=== PATIENT | male | born 1940 | race Caucasian/White ===

== ENCOUNTER → 2022-04-14 08:16 | Outpatient (BNVA) | payer MEDICARE, SELFPAY | PROVIDERS: PCP Internal Medicine; Visit Provider Psychiatry & Neurology Neurology | DX: G20 Parkinson's disease (principal); R42 Dizziness and giddiness | CPT/HCPCS: 99202 ==

== ENCOUNTER → 2022-05-16 07:49 | Outpatient (BNVA) | payer MEDICARE, SELFPAY | PROVIDERS: PCP Internal Medicine; Visit Provider Nurse Practitioner Family | DX: G20 Parkinson's disease (principal); R42 Dizziness and giddiness | CPT/HCPCS: 99212 ==

== ENCOUNTER → 2022-08-13 07:50 | Outpatient (BNVA) | payer MEDICARE, SELFPAY | PROVIDERS: PCP Internal Medicine; Visit Provider Psychiatry & Neurology Neurology | DX: G20 Parkinson's disease (principal); R42 Dizziness and giddiness | CPT/HCPCS: 99212 ==

== ENCOUNTER → 2023-01-22 08:40 | Outpatient (BNVA) | payer MEDICARE, SELFPAY | PROVIDERS: PCP Internal Medicine; Visit Provider Psychiatry & Neurology Neurology | DX: G20 Parkinson's disease (principal); R42 Dizziness and giddiness | CPT/HCPCS: 99212 ==

== ENCOUNTER 2023-07-28 08:29 | Outpatient (AMB) | payer MEDICARE, SELFPAY ==
[2023-07-28 08:43] VITALS: BP 138/82; PULSE 81; O2SAT 96; BMI 27.7
--- NOTE | 2023-07-28 08:43 | MHC.OFFVIS ---
Intake Vital Signs 07/28/23 08:43 Height 5 ft 9 in Weight 187 lb 8 oz BMI 27.7 BP 138/82 Blood Pressure Location Lt brachial Position Sitting Pulse 81 Pulse Source Pulse Oximeter Pulse Oximetry (%) 96 Oxygen Delivery Method Room Air Intake Visit Reasons: 6 mnts f/u appt Intake Note: Pt presents to the office today for a 6 month follow up with his daughter. Pt states he has been feeling okay. Pt states his parkinsons is worse in the morning but throughout the day it gets a little better. Accompanied by: Daughter Allergies codine Adverse Reaction (Intermediate, Uncoded 07/28/23 08:44) Constipation HPI HPI Comments History of Present Illness Details 83 y/o male patient presents with his daughter for follow up of Parkinson's.He wake sup with tremors but after medications he feels better. Pt and his daughter reports that bilateral hands tremor and walking has improved with sinemet 25/100 mg TID. Pt states that he can have lightheadedness after taking sinemet, and gets better in 1 hour. He drinks fluids and sports drinks which helps. He can do ALDs without help, but still has hard time to write. He stutters sometimes. Denies hallucination. Denies drooling or choking. He has mild constipation. No falls reported.He uses a cane and walks slower.He exercises regularly [facility] Medical History Thrombocytopenia Hypothyroidism HTN (hypertension) GERD (gastroesophageal reflux disease) Allergic rhinitis Prostate cancer Hyperlipidemia Vertigo Surgical History Previous back surgery Status post surgical removal of malignant neoplasm of skin Family History Mother Breast cancer Social History Alcohol intake: never Patient Tobacco Use Status: Never used Tobacco Physical Exam Vital Signs: Last Vital Signs Pulse 81 07/28/23 08:43 BP 138/82 07/28/23 08:43 Pulse Ox 96 07/28/23 08:43 Oxygen Delivery Method Room Air 07/28/23 08:43 BMI result Body Mass Index 27.7 Const General: cooperative and no acute distress Nutritional Appearance: overweight Orientation/consciousness: patient oriented x3 Limitations: language barrier ([place] speaking only.) Eyes Other: Decreased eye blinking. Resp Effort & Inspection: normal respiratory effort and able to speak in complete sentences Neuro Other: Bradykinesia No posturing hands tremor, but has bilateral hands action tremor. Face and tongue tremor. Slow, decreased FFM. General: patient oriented x3 Gait exam (Neuro): Other gait observations present (Stooped, able to stand up without assistance. Steady gait with good steps. ) Psych Appearance: grossly normal Mental Status: mental status grossly normal Assessment & Plan Assessment & Plan (1) Parkinson's Disease: Code(s): G20 - Parkinson's disease (2) Vertigo: Code(s): R42 - Dizziness and giddiness Plan Continue sinemet 25/100 mg tID. Encouraged PO fluid to prevent light headedness and constipation. Monitor light headedness carefully. Continue to do daily exercise. Continue to use cane. Coding Level of Care Code Est Pt Level 4 (91554) Diagnoses Parkinson's Disease G20 Vertigo R42
== END 2023-07-28 08:58 | disposition home or self-care (01) ==
PROVIDERS: Visit Provider Psychiatry & Neurology Neurology
DX: G20 Parkinson's disease (principal); R42 Dizziness and giddiness
CPT/HCPCS: 99214

== ENCOUNTER → 2023-07-28 08:29 | Outpatient (BNVA) | payer MEDICARE, SELFPAY | PROVIDERS: Visit Provider Psychiatry & Neurology Neurology | DX: G20.A1 Parkinson's disease without dyskinesia, without mention of fluctuations (principal); R42 Dizziness and giddiness; Z79.899 Other long term (current) drug therapy | CPT/HCPCS: 99212 ==

== ENCOUNTER 2024-06-15 14:15 | Outpatient (AMB) | payer MEDICARE, SELFPAY ==
--- NOTE | 2024-06-15 14:39 | MHC.OFFVIS ---
Vital Signs 06/15/24 14:40 Height 5 ft 9 in Weight 163 lb 2 oz BMI 24.1 BP 126/78 Blood Pressure Location Rt brachial Position Sitting Respiration 17 Pulse 79 Pulse Source Pulse Oximeter Pulse Oximetry (%) 96 Oxygen Delivery Method Room Air Intake Visit Reasons: 6 mnts f/u with Cassidy anders MD - tremor/parkinson Intake Note: Pt presents to to the office for 10 month follow up for Parkinson's. Retail Delivery Driver Required: No Allergies codine Adverse Reaction (Intermediate, Uncoded 06/15/24 14:40) Constipation HPI Comments Details: 83 y/o male patient presents with his daughter for follow up of Parkinson's. In April he stopped carbidopa/levodopa for 5 days when he was antibiotics for dental procedure . He restarted after 5 days . Pt and his daughter reports that bilateral hands tremor and walking has improved with sinemet 25/100 mg TID. Pt states that he can have lightheadedness after taking sinemet, and gets better in 1 hour. He drinks fluids and sports drinks which helps. He can do ALDs without help, but still has hard time to write. He stutters sometimes. Denies hallucination. Denies drooling or choking. He has mild constipation. He uses a walker now since his fall ( when he stopped his medication).He exercises regularly [facility] Medical History (Updated 06/15/24 @ 15:23 by Roro Sin MD) Parkinson's disease without dyskinesia Thrombocytopenia Hypothyroidism HTN (hypertension) GERD (gastroesophageal reflux disease) Allergic rhinitis Prostate cancer Hyperlipidemia Vertigo Surgical History Previous back surgery Status post surgical removal of malignant neoplasm of skin Family History Mother Breast cancer Social History Alcohol intake: never Patient Tobacco Use Status: Never used Tobacco Physical Exam Vital Signs: Last Vital Signs Pulse 79 06/15/24 14:40 Resp 17 06/15/24 14:40 BP 126/78 06/15/24 14:40 Pulse Ox 96 06/15/24 14:40 Oxygen Delivery Method Room Air 06/15/24 14:40 BMI result Body Mass Index 24.1 Const General: cooperative and no acute distress Nutritional Appearance: overweight Orientation/consciousness: patient oriented x3 Limitations: language barrier (Polish speaking only.) Eyes Other: Decreased eye blinking. Resp Effort & Inspection: normal respiratory effort and able to speak in complete sentences Neuro Other: Bradykinesia No posturing hands tremor, but has bilateral hands action tremor. Face and tongue tremor. Slow, decreased FFM. General: patient oriented x3 Gait exam (Neuro): Other gait observations present (Stooped, able to stand up without assistance. Steady gait with good steps. ) Psych Appearance: grossly normal Mental Status: mental status grossly normal Assessment & Plan Assessment & Plan (1) Parkinson's disease without dyskinesia: Code(s): G20.A1 - Parkinson's disease without dyskinesia, without mention of fluctuations Category: Medical Plan Continue sinemet 25/100 tid Increase fluids and food intake Continue exercise. compliance with medications stressed. Coding Level of Care Code Est Pt Level 4 (81924) Complex EM visit Add On G2211 Diagnoses Parkinson's disease without dyskinesia G20.A1
[2024-06-15 14:40] VITALS: BP 126/78; PULSE 79; RESP 17; O2SAT 96; BMI 24.1
== END 2024-06-15 15:37 | disposition home or self-care (01) ==
PROVIDERS: Absent Provider Psychiatry & Neurology Neurology; PCP Internal Medicine; Visit Provider Psychiatry & Neurology Neurology
DX: G20.A1 Parkinson's disease without dyskinesia, without mention of fluctuations (principal)
CPT/HCPCS: 99214; G2211

== ENCOUNTER → 2024-06-15 14:15 | Outpatient (BNVA) | payer MEDICARE, SELFPAY | PROVIDERS: Absent Provider Psychiatry & Neurology Neurology; PCP Internal Medicine; Visit Provider Psychiatry & Neurology Neurology | DX: G20.A1 Parkinson's disease without dyskinesia, without mention of fluctuations (principal) | CPT/HCPCS: 99212 ==

== ENCOUNTER 2024-12-29 07:48 | Outpatient (AMB) | payer MEDICARE, SELFPAY ==
[2024-12-29 07:50] VITALS: BP 136/78; PULSE 77; O2SAT 100; BMI 25.1
--- NOTE | 2024-12-29 07:50 | MHC.OFFVIS ---
Vital Signs 12/29/24 07:50 Height 5 ft 9 in Weight 170 lb BMI 25.1 BP 136/78 Blood Pressure Location Rt brachial Pulse 77 Pulse Source Pulse Oximeter Pulse Oximetry (%) 100 Oxygen Delivery Method Room Air Intake Visit Reasons: 6 mnts f/u Intake Note: patient following up for Parkinson's disease without dyskinesia. Allergies codine Adverse Reaction (Intermediate, Uncoded 12/29/24 07:52) Constipation Medication List - Last Reconciled 12/29/24 by Roro Sin MD carbidopa-levodopa 25-100 mg (Sinemet) 1 tab PO QID 90 days fluticasone propionate 50 mcg/actuation (Allergy Relief (fluticasone)) 2 sprays intranasal DAILY levothyroxine 75 mcg PO DAILY lisinopril-hydrochlorothiazide 10-12.5 mg 1 tab PO DAILY tamsulosin 0.4 mg PO DAILY HPI Comments Details: 84 y/o male patient presents with his Grand son for follow up of Parkinson's. He denies any worsening. Pt and his grand son reports that bilateral hands tremor and walking has improved with sinemet 25/100 mg TID. Pt states that he can have lightheadedness after taking sinemet, and gets better in 1 hour. He drinks fluids and sports drinks which helps. He can do ALDs without help, but still has hard time to write. He stutters sometimes.He arzola ssome trouble with fine motor functions Denies hallucination. Denies drooling or choking. He has mild constipation. He uses a walker now since his fall ( when he stopped his medication).He exercises regularly [facility] Medical History Parkinson's disease without dyskinesia Thrombocytopenia Hypothyroidism HTN (hypertension) GERD (gastroesophageal reflux disease) Allergic rhinitis Prostate cancer Hyperlipidemia Vertigo Surgical History Previous back surgery Status post surgical removal of malignant neoplasm of skin Family History Mother Breast cancer Social History Alcohol intake: never Patient Tobacco Use Status: Never used Tobacco Physical Exam Vital Signs: Last Vital Signs Pulse 77 12/29/24 07:50 BP 136/78 12/29/24 07:50 Pulse Ox 100 12/29/24 07:50 Oxygen Delivery Method Room Air 12/29/24 07:50 BMI result Body Mass Index 25.1 Const General: cooperative and no acute distress Nutritional Appearance: overweight Orientation/consciousness: patient oriented x3 Limitations: language barrier (Indonesian speaking only.) Eyes Other: Decreased eye blinking. Resp Effort & Inspection: normal respiratory effort and able to speak in complete sentences Neuro Other: Bradykinesia No posturing hands tremor, but has bilateral hands action tremor. Face and tongue tremor. Slow, decreased FFM. General: patient oriented x3 Gait exam (Neuro): Other gait observations present (Stooped, able to stand up without assistance. Steady gait with good steps. ) Psych Appearance: grossly normal Mental Status: mental status grossly normal Assessment & Plan Assessment & Plan (1) Parkinson's disease without dyskinesia: Code(s): G20.A1 - Parkinson's disease without dyskinesia, without mention of fluctuations Category: Medical Qualifiers: Fluctuating manifestations: without fluctuating manifestations Qualified Code(s): G20.A1 - Parkinson's disease without dyskinesia, without mention of fluctuations Plan Increase sinemet 25/100 qid 5am,1-pm,4pm,9pm Increase fluids and food intake Continue exercise. compliance with medications stressed. Medications: Changed From carbidopa-levodopa 25-100 mg (Sinemet) 1 tab PO TID 90 days 270 tabs 3RF To carbidopa-levodopa 25-100 mg (Sinemet) 5am,10am,4pm,9pm 1 tab PO QID 90 days 360 tabs 3RF Coding Level of Care Code Est Pt Level 4 (01834) Complex EM visit Add On G2211 Diagnoses Parkinson's disease without dyskinesia or fluctuating manifestations G20.A1 Fluctuating manifestations: without fluctuating manifestations
--- OUTSIDE RECORDS SUMMARY | 2024-12-29 07:50 | XMS_ITS | Clinical Summary ---
Author Organization [facility] Address [address] [place] [address] Phone Care Team Providers Care Wet Roaster Name Role Phone Vijay Rendon MD Primary Care Provider [phone] Surgical History Surgery Date Site/Laterality Comments OTHER SURGICAL HISTORY 2000 PROCEDURE: ---- OTHER ----; COMMENT: h/o L4-L5 decompression OTHER SURGICAL HISTORY 2014 PROCEDURE: ---- OTHER ----; COMMENT: nasal polipectomy OTHER SURGICAL HISTORY 2012 PROCEDURE: ---- OTHER ----; COMMENT: prostate seeds COLONOSCOPY 10/21/2016 PROCEDURE: HISTORICAL COLONOSCOPY; COMMENT: normal HERNIA REPAIR 02/25/2018 Left PROCEDURE: HISTORICAL HERNIA REPAIR/ING Medical History Medical History Date Comments Hypertension, essential 01/22/2016 DX:Hyper tension, essential Hypothyroidism 01/22/2016 DX:Hypothyroidis m Asymptomatic varicose veins of bilateral lower extremities 01/22/2016 DX:Asymptomatic varicose vei ns of bilateral lower extremities Thrombocytopenia ([facility]) 01/22/2016 DX:Th rombocytopenia ([facility]) Allergic rhinitis 03/17/2016 DX:Allergic rh initis GERD (gastroesophageal reflux disease) 03/17/2016 DX:GERD (gastroesophageal reflux disease) History of prostate cancer 06/13/2016 DX:Ok story of prostate cancer; COMMENT: S/p RT, PSA low, f/u Gastroesophageal reflux dise ase without esophagitis 08/03/2018 DX:Gastroesophageal reflux d isease without esophagitis Parkinson disease ([facility]) 08/04/2022 DX:P arkinson disease ([facility]) Family History Relation Name Status Comments Brother 1 Alive Brother 2 Alive Brother 3 Alive Daughter Alive Father Mother (Age 50) breast ca Sister 1 Alive Sister 2 Alive Sister 3 Alive Son 1 Alive Son 2 Alive Social History Tobacco Use Types Packs/Day Years Used Date Smoking Tobacco: Never Smokeless Tobacco: Never Alcohol Use Standard Drinks/Week Comments Not Currently 0 (1 standard drink = 0.6 oz pur e alcohol) Sex and Gender Information Value Date Recorded Sex Assigned at Not on file Legal Sex Male 9:03 AM EST Gender Identity Not on file Sexual Orientation Not on file Obstetrics History Last Filed Vital Signs Vital Sign Reading Time Taken Comments Blood Pressure 118/68 05/10/2024 4:05 PM EDT L A rm Pulse 90 05/10/2024 4:05 PM EDT Temperature - - Respiratory Rate - - Oxygen Saturation - - Inhaled Oxygen Concentration - - Weight 83.2 kg (183 lb 6.4 oz) 02/08/2024 8:43 A M EDT Height 175.3 cm (5' 9 ) 02/08/2024 8:43 AM EDT Body Mass Index 27.08 02/08/2024 8:43 AM EDT Plan of Treatment Health Maintenance Due Date Last Done Comments Pneumococcal Vaccine: 50+ Years (1 of 1 - PCV) 1991 Zoster Vaccines (1 of 2) 1991 RSV Immunization Patients 60+ Years Old (1 - 1-dose 75+ series) 2016 Cholesterol Screening (Lipid Panel) 10/04/2022 Depression Screening 10/04/2022 Falls Risk Assessment 10/04/2022 Medicare Annual Wellness Visit 10/04/2022 Social Influencers of Health Screening 10/04/2022 COVID-19 Vaccine ( season) 2024 08/24/2021, 12/18/2020, 11/27/2020 Influenza Vaccine (#1) 2024 3, 08/04/2022, 08/09/2021, Additional history exists Hypertension/CHF/CAD Annual BMP Blood Test 03/28/2025 03/28/2024 DTaP,Tdap,and Td Vaccines (3 - Td or Tdap) 03/13/2031 03/13/2021, 12/21/2019 HIB Vaccines Aged Out No longer eligi ble based on patient's age to complete this topic HPV Vaccines Aged Out No longer eligi ble based on patient's age to complete this topic Hepatitis A Vaccines Aged Out No long er eligible based on patient's age to complete this topic Hepatitis B Vaccines Aged Out No long er eligible based on patient's age to complete this topic IPV Vaccines Aged Out No longer eligi ble based on patient's age to complete this topic MMR Vaccines Aged Out No longer eligi ble based on patient's age to complete this topic Meningococcal ACWY Vaccine Aged Out N o longer eligible based on patient's age to complete this topic Meningococcal B Vacine Aged Out No lo nger eligible based on patient's age to complete this topic RSV Immunization Patients Under 20 months Aged Out No longer eligible based on patient's age to complete this topic Varicella Vaccines Aged Out No longer eligible based on patient's age to complete this topic Insurance [employer] MEDICARE [facility] Advance Directives Documents on File Type Date Recorded Patient Certified Welder Expl anation Health Care Decision (hx) 03/16/2021 AD ROCHA DIRECTIVE Health Care Decision (hx) 03/16/2021 AD ROCHA DIRECTIVE Health Care Decision (hx) 03/16/2021 AD ROCHA DIRECTIVE Health Care Decision (hx) 03/16/2021 AD ROCHA DIRECTIVE Health Care Decision (hx) 03/16/2021 AD ROCHA DIRECTIVE Health Care Decision (hx) 03/16/2021 AD ROCHA DIRECTIVE Health Care Decision (hx) 03/16/2021 AD ROCHA DIRECTIVE Health Care Decision (hx) 03/16/2021 AD ROCHA DIRECTIVE Health Care Decision (hx) 03/16/2021 AD ROCHA DIRECTIVE Health Care Decision (hx) 03/16/2021 AD ROCHA DIRECTIVE Care Teams Wet Roaster Relationship Specialty Start Date End Date Vijay Rendon MD [address] [place] [id number] PCP - General Internal Medicine 11/14/19
--- OUTSIDE RECORDS SUMMARY | 2024-12-29 07:50 | XMS_ITS | Encounter Summary ---
Author Organization [facility] Address [id number] [place] [id number] Care Team Providers Care Machine Loader Name Role Phone Vijay Rendon MD Primary Care Provider [phone] Encounter Details Date Type Department Care Team (Late st Contact Info) Description 08/30/2024 Lab Requisition [facility] - Main Lab [address] [facility] [employer] [place] [address] Karri Matthews MD [address] [facility] [address] [place] [id number] Cutaneous abscess of back (any part, except buttock) Social History Tobacco Use Types Packs/Day Years Used Date Smoking Tobacco: Never Smokeless Tobacco: Never Alcohol Use Standard Drinks/Week Comments Not Currently 0 (1 standard drink = 0.6 oz pur e alcohol) Sex and Gender Information Value Date Recorded Sex Assigned at Not on file Legal Sex Male 9:03 AM EST Gender Identity Not on file Sexual Orientation Not on file documented as of this encounter Plan of Treatment Not on file documented as of this encounter Procedures Procedure Name Priority Date/Time Associated Diagnosis Comments CULTURE WOUND WITH GRAM STAIN Routine 08/30/2024 12:00 AM EST Cutaneous abscess of back (any part, except buttock) documented in this encounter Results * (ABNORMAL) Culture wound with gram stain (08/30/2024 12:00 AM EST) Culture, Wound Normal Skin Harika 06/2024 10:31 AM EST [facility] Culture, Wound Jennifer parapsilosis(A) LEA 09/03/2024 10:31 AM EST [facility] Comment: The organism value for this result has been updated. These results have been appended to the previously preliminary verified report. Edited result: Previously reported as Yeast on 09/02/2024 at 1317 EST. Gram Stain Result No Epithelial cells(A) 09/03/2024 10:31 AM EST [facility] Gram Stain Result Few Polymorphonuclear leukocytes(A) 09/03/2024 10:31 AM EST [facility] Gram Stain Result Rare Gram positive cocci(A) 09/03/2024 10:31 AM EST [facility] Swab Structure of left shoulder region / Unknown 08/30/2024 08/30/2024 6:25 PM EST us Karri Matthews MD LAB MICROBIOLOGY - GENERAL ORD ERABLES Final Result [facility] [address] [place] [address], documented in this encounter Visit Diagnoses Diagnosis Cutaneous abscess of back (any part, except buttock) documented in this encounter Care Teams Machine Loader Relationship Specialty Start Date End Date Vijay Rendon MD [address] [place] [id number] PCP - General Internal Medicine 11/14/19 documented as of this encounter
== END 2024-12-29 08:23 | disposition home or self-care (01) ==
PROVIDERS: PCP Internal Medicine; Visit Provider Psychiatry & Neurology Neurology
DX: G20.A1 Parkinson's disease without dyskinesia, without mention of fluctuations (principal)
CPT/HCPCS: 99214; G2211

== ENCOUNTER → 2024-12-29 07:48 | Outpatient (BNVA) | payer MEDICARE, SELFPAY | PROVIDERS: PCP Internal Medicine; Visit Provider Psychiatry & Neurology Neurology | DX: G20.A1 Parkinson's disease without dyskinesia, without mention of fluctuations (principal) | CPT/HCPCS: 99212 ==

== ENCOUNTER 2025-06-07 11:46 | Outpatient (AMB) | payer MEDICARE, SELFPAY ==
--- NOTE | 2025-06-07 11:46 | A.OFFVIS_ITS ---
Intake Visit Reasons: Daughter, Discharge follow up ([phone]) Intake Note: Patient presents Hospital follow up. [facility] records in chart. Dining Room Attendant Cafeteria Required: Yes Dining Room Attendant Cafeteria Language: Repatcher Services: Dining Room Attendant Cafeteria Offered & Declined Dining Room Attendant Cafeteria Name: Daughter Information Interpreted: non-clinical & clinical Allergies codine Adverse Reaction (Intermediate, Uncoded 12/29/24 07:52) Constipation HPI Comments Details: 84 y/o male patient presents with his daughter for follow up of Parkinson's Disorder post rehabilitation on [employer] Video Call today. Dana Penaloza daughter helps with history. The dose of CD/LD is increased to 1.5 tablets of CD/LD now TID 9am, 1pm, and again at 9pm. Patient Ed. provided re: Medication adherence, dopamine uptake interference with absorption if taken with proteins. CTscan May 01 2025, incidental finding 9mm pulmonary nodule. May 01 2025 he had a fall, he was feeling off balanced, and the ambulance was called he was taken to the ED at [facility]. He had a UTI with AMS, mood irritability and complete work up followed by 3 weeks of Rehabilitative stay. He was discontinued on his lisinopril - Hctz 10-12.5mg po daily. He has PT and OT coming into the home and has fallen 3x this week. He forgets to use his walker as his memory is poor, daughter would like VNA services also for feeding, safe toileting and transferring. He denies dizziness, vertigo, and headaches. He has bilateral hand tremors L>R, and pulling to the r. side of his upper lip tremors. He drinks fluids and sports drinks with assistance, can not feed himself or dress himself due to fine motor coordination deficits. He can not complete ADLS. Needs support. He stutters when frustrated and anxious. Denies A/V hallucinations, can sleep through the night for a few hours. Denies swallowing, drooling or choking, speech is soft, unable to project his voice. [facility] Medical History Parkinson's disease without dyskinesia Thrombocytopenia Hypothyroidism HTN (hypertension) GERD (gastroesophageal reflux disease) Allergic rhinitis Prostate cancer Hyperlipidemia Vertigo Surgical History Previous back surgery Status post surgical removal of malignant neoplasm of skin Family History Mother Breast cancer Social History Alcohol intake: never Patient Tobacco Use Status: Never used Tobacco Telehealth Telehealth Telehealth Platform: [employer] Location of provider rendering services: practice address Location of patient: address on file Patient Identification confirmed using: Name, : Yes Telehealth method: video Patient verbally consented to treatment: Yes Patient verbally consented to billing insurance company: Yes Patient informed of any privacy concerns related to visit: Yes Minutes spent on Phone/Video with Pt.: 21 Results Reviewed Results Reviewed: May 01 ED note [facility]. Assessment & Plan Assessment & Plan (1) Falls frequently: Code(s): R29.6 - Repeated falls Category: Medical (2) Coarse tremors: Code(s): G25.2 - Other specified forms of tremor Category: Medical (3) Parkinson's disease without dyskinesia: Code(s): G20.A1 - Parkinson's disease without dyskinesia, without mention of fluctuations Category: Medical Qualifiers: Fluctuating manifestations: without fluctuating manifestations Qualified Code(s): G20.A1 - Parkinson's disease without dyskinesia, without mention of fluctuations (4) Pulmonary nodule less than 1 cm in diameter with low risk for malignant neoplasm: Comment: will f/u per radiologist recommendation. Code(s): R91.1 - Solitary pulmonary nodule; Z91.89 - Other specified personal risk factors, not elsewhere classified Category: Medical Plan Continue sinemet 1.5 tablet 25/100 qid 9am, 1pm, and 9pm Increase fluids and food intake without protein products when taking the Sinemet, pt. education provided re: Apomorphine pump therapy with [facility] today. Incidental finding of pulmonary nodule 9mm on CTscan. Continue working with PT/OT and speech as needed. VNA services requested for ambulation and transferring, showering and feeding. [place] paperwork for Son Puneet Kincaid, as Dana the daughter is going back to work Thursday. Orders: Referrals [facility] Referral R29.6 - Repeated falls Patient Instructions: Sleep Hygiene provided: set a scheduled bedtime and wake time to help regulate the circadian rhythm and balance the release of pituitary hormones. Sleep in a dark room, temperatures below 68 degrees, and no devices n bed. Limit caffeinated products 6 hours prior to bed, and limit fluids 2-4 hours prior to bed. Gentle night yoga, diffusing essential oils, and playing soft music can be relaxing. Medication adherence Altered mental status Coding Level of Care Code Tele Est Pt Level 4 (23032) Diagnoses Falls frequently R29.6 Coarse tremors G25.2 Parkinson's disease without dyskinesia or fluctuating manifestations G20.A1 Fluctuating manifestations: without fluctuating manifestations Pulmonary nodule less than 1 cm in diameter with low risk for malignant neoplasm R91.1; Z91.89
--- OUTSIDE RECORDS SUMMARY | 2025-06-07 12:40 | XMS_ITS | Encounter Summary ---
Author Organization [facility] Address [address] [place] [id number] Care Team Providers Care Business Control Manager Name Role Phone Mariah Velasquez MD Primary Care Provider Reason for Visit * Reason Onset Date Comments VNA 06/06/2025 Encounter Details Date Type Department Care Team (Late st Contact Info) Description 06/06/2025 Telephone Internal Medicine - [facility] [address] [place], [place] [phone] Mariah Velasquez MD [address] [place], [place] VNA Social History Tobacco Use Types Packs/Day Years [...] on file documented as of this encounter Progress Notes * Carolyn Cabello RN - 06/07/2025 9:16 AM EDT Spoke with the Sofia from [facility] requesting OT home health aide and social security assessor. The patient is falling a lot at home refuses to go to ER. Family is frustrated and needs more help. VO given Patient has [facility] * Carolyn Cabello RN - 06/06/2025 1:05 PM EDT Attempted to contact VNA reached VM please re message to triage * Kendaljovani Ann - 06/06/2025 12:40 PM EDT VNA CALL Which [facility]NA office is calling? [facility] Full name of caller: Sofia Elo The caller is A occupational therapist Is the caller at the patients home?: no Reason for call: Needing verbal orders for OT, home health aid and social media specialist. Puneet had 2 falls yesterday and has bruising on arm in which pt refuses to go to the ER. Does caller need an urgent call back? no Was CONTACT Telephone # obtained above?: yes . documented in this encounter Plan of Treatment Upcoming Encounters Date Type Department Care Team (Late st Contact Info) Description 06/14/2025 8:30 AM EDT [facility] [address] [place] [address] Daniel Mcintyre NP [address] [place] [address] documented as of this encounter Visit Diagnoses Diagnosis Weakness generalized- Primary Other malaise and fatigue documented in this encounter Care Teams Business Control Manager Relationship Specialty Start Date End Date Mairah Velasquez MD [address] [place] [address] PCP - General Internal Medicine 05/30/25 documented as of this encounter
== END 2025-06-07 12:31 | disposition home or self-care (01) ==
LOC: HO.HSMS 11:46
PROVIDERS: PCP Internal Medicine; Visit Provider Physician Assistant Medical
DX: R29.6 Repeated falls (principal); G25.2 Other specified forms of tremor; G20.A1 Parkinson's disease without dyskinesia, without mention of fluctuations; R91.1 Solitary pulmonary nodule; Z91.89 Other specified personal risk factors, not elsewhere classified
CPT/HCPCS: 99214

== ENCOUNTER 2025-07-03 08:06 | Outpatient (AMB) | payer MEDICARE, SELFPAY ==
--- OUTSIDE RECORDS SUMMARY | 2025-06-27 23:59 | XMS_ITS | Continuity of Care Document ---
Author Organization [facility] Address [address] [place] [address]- Care Team Providers Care Advertising Columnist Name Role Phone Not on Staff, PCP Primary Care Physician Unavail able Encounter 06/26/25 - 06/27/[address] [address]- Attending Physician: Not on Staff, Attending MD Referring Physician: Not on Staff, Referring MD Encounter Type: SMRI Allergies, Adverse Reactions, Alerts No Known Allergies Immunizations Given and Recorded Vaccine Date Status Refusal Reason influenza virus vaccine, inactivated 08/03/23 Neno rded influenza virus vaccine, inactivated 08/04/22 Neno rded influenza virus vaccine, inactivated 08/09/21 Neno rded influenza virus vaccine, inactivated 08/01/20 Neno rded influenza virus vaccine, inactivated 08/23/18 Neno rded influenza virus vaccine, inactivated 08/25/17 Neno rded influenza virus vaccine, inactivated 11/11/16 Neno rded influenza virus vaccine, inactivated 08/01/16 Neno rded [id number] bivalent booster vax 11/05/22 Recorded SARS-CoV-2 mRNA ([id number]-[id number]) vax 03/01/22 Recorded SARS-CoV-2 (COVID-19) mRNA BNT-162b2 vac 08/24/21 Recorded SARS-CoV-2 (COVID-19) mRNA BNT-162b2 vac 12/18/20 Recorded SARS-CoV-2 (COVID-19) mRNA BNT-162b2 vac 11/27/20 Recorded tetanus/diphtheria/pertussis, acel(Tdap) 03/13/21 Recorded tetanus-diphtheria toxoids (Td) 12/21/19 Recorded Medications acetaminophen 325 mg oral tablet 650 mg, By Mouth, Every 4 hours, PRN, Temperature Greater than 100.5, Refills 0, Maintenance, Pain , Mild, 04/24/25 9:09:00 AM EDT, Partial fill upon patient request if the prescription is for a schedule II opioid drug. Start Date: 04/24/25 Status: Ordered Medication Dispense Status: Completed Total Allowed Fills: 1 Fills Dispensed: 0 carbidopa-levodopa 25 mg-100 mg oral tablet 1.5 tablet, By Mouth, 3 times a day, 0 Refills, Maintenance, 04/27/25 10:35:00 AM EDT, Tablet, Partial fill upon patient request if the prescription is for a schedule II opioid drug. Start Date: 04/27/25 Status: Ordered Medication Dispense Status: Completed Total Allowed Fills: 1 Fills Dispensed: 0 levothyroxine 75 mcg (0.075 mg) oral tablet 1 tablet = 75 mcg, By Mouth, Daily, Maintenance, 04/19/25 8:58:00 AM EDT, Tablet, Partial fill upon patient request if the prescription is for a schedule II opioid drug. Start Date: 04/19/25 Status: Ordered Medication Dispense Status: Completed Total Allowed Fills: 1 Fills Dispensed: 0 lisinopril 10 mg oral tablet 10 mg, 1, tablet, By Mouth, Daily, # 30 tablet, Refills 0, Tot. Refills 0, Maintenance, 05/01/25 2:16:00 PM EDT, Do Not Route, Partial fill upon patient request if the prescription is for a schedule IIopioid drug. Start Date: 05/01/25 Status: Ordered Medication Dispense Status: Completed Quantity: 30.0 Unit: tablet Total Allowed Fills: 1 Fills Dispensed: 0 MiraLax Powder 1 pack/packet = 17 Gm, By Mouth, Daily, PRN Constipation, 0 Refills, Maintenance, 04/24/25 9:09:00 AM EDT, Powder, Partial fill upon patient request if the prescription is for a schedule II opioid drug. Start Date: 04/24/25 Status: Ordered Medication Dispense Status: Completed Total Allowed Fills: 1 Fills Dispensed: 0 senna 187 mg oral tablet 1 tablet = 8.6 mg, By Mouth, 2 times a day, PRN Constipation, 0 Refills, Maintenance, 04/27/25 10:35:00 AM EDT, Tablet, Partial fill upon patient request if the prescription is for a schedule II opioiddrug. Start Date: 04/27/25 Status: Ordered Medication Dispense Status: Completed Total Allowed Fills: 1 Fills Dispensed: 0 Social History Social History Type Response Smoking Status Never (less than 100 in lifetime) entered on: 06/14/25 Sex Sex Representation Male (finding) Patient Care team information Care Team Personnel Name: Juan Mike RN Position: S RN Member Role: Primary Care Nurse Name: Darien Lopes RN Position: S RN Member Role: Primary Care Nurse Name: Isela Fitzpatrick RN Position: S RN Member Role: Primary Care Nurse Name: Not on Staff, PCP Position: [facility] Physician (General Medicine) Member Role: PCP Name: Kim Soriano LPN Position: [facility] RN Member Role: Primary Care Nurse Name: Marcia Hyatt RN Position: [facility] RN Member Role: Primary Care Nurse Care Team Related Persons Name: CANDICE RANGEL Name: BRITTANIE RANGEL Insurance Providers Guarantor name: CANDICE RANGEL Health Plan Information #: 1 Payer: BRYCE IZAGUIRRE Payer Identifier: CHRIS Member Number: [id number] Group Number: [id number] Subscriber Identifier: NA Relationship to Subscriber: self Coverage Type: NA Coverage Verification Date: NA Telecom: CHRIS Address:
--- OUTSIDE RECORDS SUMMARY | 2025-06-29 23:59 | XMS_ITS | Continuity of Care Document ---
Author Organization [facility] Address [address] [address]- Care Team Providers Care Pharmacy Salesperson Name Role Phone Not on Staff, PCP Primary Care Physician Unavail able Encounter [facility] Date(s): 04/26/25 - 06/29/25 [facility] [address] [address] Attending Physician: Brian Esquivel MD Admitting Physician: Brian Esquivel MD Referring Physician: Brian Esquivel MD Encounter Type: Pre-OutPatient One Time Allergies, Adverse Reactions, Alerts No Known Allergies [...] influenza virus vaccine, inactivated 08/01/16 Neno rded [id number] bivalent booster vax 11/05/22 Recorded SARS-CoV-2 mRNA (zxtfizt-wohn-fbfra) vax 03/01/22 Recorded SARS-CoV-2 (COVID-19) mRNA BNT-162b2 [...] Team Personnel Name: Juan Mike RN Position: [facility] RN Member Role: Primary Care Nurse Name: Darien Lopes RN Position: [facility] RN Member Role: Primary Care Nurse Name: Isela Fitzpatrick RN Position: [facility] RN Member Role: Primary Care Nurse Name: Not on Staff, PCP Position: [facility] Physician (General Medicine) Member Role: PCP Name: Kim Soriano LPN Position: [facility] RN Member Role: Primary Care Nurse Name: Marcia Hyatt RN Position: [facility] RN Member Role: Primary Care Nurse Care Team Related Persons Name: CANDICE RANGEL Name: BRITTANIE RANGEL Insurance Providers Guarantor name: CANDICE RANGEL Health Plan Information #: 1 Payer: BRYCE IZAGUIRRE Payer Identifier: NA Member Number: [id number] Group Number: [id number] Subscriber Identifier: [id number] Relationship to Subscriber: self Coverage Type: NA Coverage Verification Date: NA Telecom: Address:
--- NOTE | 2025-07-03 08:13 | A.OFFVIS_ITS ---
Vital Signs 07/03/25 08:14 Height 5 ft 9 in Weight 170 lb BMI 25.1 BP 132/84 Blood Pressure Location Lt brachial Position Sitting Pulse 78 Pulse Source Pulse Oximeter Pulse Oximetry (%) 97 Oxygen Delivery Method Room Air Intake Visit Reasons: 6 mnts f/u Intake Note: Patient presents follow up Parkinson's. Patient was seen at [facility](April) due to falling and was found on floor by daughter(Stroke? metal state going, slurred speach). Had UTI. Son states little better but still worried of falling/slipping. Alone for 8-3 Mandrel Maker Required: Yes Mandrel Maker Language: Chemist Pharmaceutical Services: Mandrel Maker Offered & Declined Mandrel Maker Name: son Information Interpreted: non-clinical & clinical Accompanied by: Son Allergies codeine Allergy (Intermediate, Verified 07/03/25 08:22) Constipation HPI Comments Details: 85 y/o male patient presents for a follow up of Parkinson's Disorder. The dose of CD/LD is increased to 1.5 tablets of CD/LD now TID 9am, 1pm, and again at 9pm. Patient Ed. provided re: medication adherence, dopamine uptake interference with absorption if taken with proteins. 2024, he had slurred speech and fell, he was taken to ED by ambulance for for stroke like symptoms, he had a UTI with AMS mood irriitability and he was worked up for a stroke. He went to rehab for one month to [place] he had a UTI. Daughter is concerned as she is going back to work from 8am to 3pm, and he is left all alone. He has a fall alert bracelet in Persian in case of emergencies. His last fall was 3 weeks or more, he is walking with the walker. Sleep is stable has a medical bed to help get in and out of bed, and can turn over. He has PT and OT coming into the home since the fall, 3x per week. Gait is unstable and leans to the right when walking with his rolling walker. Hearing is poor, daughter would like VNA / SOCIAL WELFARE CLERK services to assist for feeding, dressing, safe toileting and transferring. Mood is depressed. Cognition stable. He denies headaches, dizziness, vertigo. Tremors cecilia hand tremors L>R, with pulling to the r. side of his upper lip and tremors of the tongue. ADLS can not feed himself, food must be cut up for him, needs support with dressing showering and all due to fine motor activities. Diet is stable, BM 2-3x a week, drinks plenty of water. Denies A/V hallucinations, can sleep through the night for a few hours. Nocturia has urinal at bedside. Social activities, none. Denies dysphagia, drooling is worse, speech is soft, unable to project his voice. He stutters when frustrated and anxious. [facility] Medical History Parkinson's disease without dyskinesia Thrombocytopenia Hypothyroidism HTN (hypertension) GERD (gastroesophageal reflux disease) Allergic rhinitis Prostate cancer Hyperlipidemia Vertigo Surgical History Previous back surgery Status post surgical removal of malignant neoplasm of skin Family History Mother Breast cancer Social History Alcohol intake: never Patient Tobacco Use Status: Never used Tobacco Physical Exam Vital Signs: Last Vital Signs Pulse 78 07/03/25 08:14 BP 132/84 07/03/25 08:14 Pulse Ox 97 07/03/25 08:14 Oxygen Delivery Method Room Air 07/03/25 08:14 BMI result Body Mass Index 25.1 Const General: cooperative, no acute distress and tired appearing Nutritional Appearance: average body habitus Orientation/consciousness: patient oriented x3 Limitations: language barrier (Persian speaking only.) Eyes Other: Decreased eye blink. Resp Effort & Inspection: normal respiratory effort and able to speak in complete sentences Neuro Other: Decreased blink and Bradykinesia. Hypophonia, decreased hearing bilaterally. No posturing hands tremor, but has bilateral hands action tremor L>R. Face and tongue tremor. Slow, decreased FFM. L. extremity rigidity Stooped posture ambulates with rolling walker and leans to the right. General: patient oriented x3 Cranial nerves: Yes Ability to bilaterally rotate head present (with limited rom on lateral rotation.) and Yes Ability to bilaterally elevate shoulders present Gait exam (Neuro): Staggering gait present, Assistive device used and Other gait observations present (Stooped, able to stand up without assistance.) Motor exam (neuro): Abnormal motor strength present and Abnormal muscle tone present Deep tendon reflexes (DTR's): Right triceps reflex intensity grade: 1+, Left triceps reflex intensity grade: 1+, Rt Biceps (C5, C6): 1+, Left biceps reflex intensity grade: 1+, Right brachioradialis reflex intensity grade: 1+, Left brachioradialis reflex intensity grade: 1+, Right patellar reflex intensity grade: 1+ and Left patellar reflex intensity grade: 1+ Coordination: [id number] test normal, rapid alternating movements of the distal upper extremity normal (slow) and rapid alternating movements of the distal lower extremity normal (slow l>r) Psych Appearance: grossly normal Speech and movement: Slowed movement present (Neuro) Results Reviewed Results Reviewed: 2024 [facility] note CTscan /PET 9mm infectious / inflammatory r.u.l nodule. No lymphadenopathy. More likely infectious etiology vs. malignancy. Assessment & Plan Assessment & Plan (1) Falls frequently: Comment: using rolling walker now Code(s): R29.6 - Repeated falls Category: Medical (2) Coarse tremors: Code(s): G25.2 - Other specified forms of tremor Category: Medical (3) Parkinson's disease without dyskinesia: Code(s): G20.A1 - Parkinson's disease without dyskinesia, without mention of fluctuations Category: Medical Qualifiers: Fluctuating manifestations: without fluctuating manifestations Qualified Code(s): G20.A1 - Parkinson's disease without dyskinesia, without mention of fluctuations (4) Pulmonary nodule less than 1 cm in diameter with low risk for malignant neop lasm: Comment: infectous etiology Code(s): R91.1 - Solitary pulmonary nodule; Z91.89 - Other specified personal risk factors, not elsewhere classified Category: Medical (5) Drooling: Comment: speech Code(s): K11.7 - Disturbances of salivary secretion Category: Medical Plan Continue sinemet 1.5 tablet 25/100 tid 9am, 1pm, and 9pm, Increase fluids and food intake without protein products when taking the Sinemet, pt. education provided Monitor off time and take notes. for Onpago / Apomorphine re: Apomorphine pump therapy with Onpago today as he may be a good candidate. Continue working with PT/OT weekly. VNA/SOCIAL WELFARE CLERK services requested for support with transferring, showering and feeding. f/u in 3 months or sooner if needed. Orders: Referrals Speech and Hearing Referral K11.7 - Disturbances of salivary secretion, R13.10 - Dysphagia, unspecified Patient Instructions: Sleep Hygiene provided: set a scheduled bedtime and wake time to help regulate the circadian rhythm and balance the release of pituitary hormones. Sleep in a dark room, temperatures below 68 degrees, and no devices n bed. Limit caffeinated products 6 hours prior to bed, and limit fluids 2-4 hours prior to bed. Gentle night yoga, diffusing essential oils, and playing soft music can be relaxing. Coding Level of Care Code Est Pt Level 4 (21298) Diagnoses Falls frequently R29.6 Coarse tremors G25.2 Parkinson's disease without dyskinesia or fluctuating manifestations G20.A1 Fluctuating manifestations: without fluctuating manifestations Pulmonary nodule less than 1 cm in diameter with low risk for malignant neoplasm R91.1; Z91.89 Drooling K11.7
[2025-07-03 08:14] VITALS: BP 132/84; PULSE 78; O2SAT 97; BMI 25.1
--- OUTSIDE RECORDS SUMMARY | 2025-07-03 08:49 | XMS_ITS | Encounter Summary ---
Author Organization [facility] Address [address] [place] [phone] Care Team Providers Care Laryngologist Name Role Phone Mariah Velasquez MD Primary Care Provider [phone] Reason for Visit * Reason Onset Date Comments VNA 06/01/2025 Encounter Details Date Type Department Care Team (Late st Contact Info) Description 06/01/2025 Telephone Internal Medicine - [facility] [address] [place], [place] [phone] Mariah Velasquez MD [address] [place], [place] Social History Tobacco Use Types Packs/Day Years [...] Progress Notes * Carolyn Cabello RN - 06/01/2025 4:04 PM EDT Spoke with Ely LAYTON requesting VO PT for the start of care with assessment for correction. Jose ROSS * Maral Penn - 06/01/2025 3:57 PM EDT [facility]NA CALL Which [facility] office is calling? [facility] Full name of caller: Ely The caller is A nurse Is the caller at the patients home?: no Reason for call: Needing verbal orders for PT to start tomorrow Does caller need an urgent call back? yes Was CONTACT Telephone # obtained above?: yes documented in this encounter Plan of Treatment Upcoming Encounters Date Type Department Care Team (Late st Contact Info) Description 07/21/2025 2:30 PM EDT Office Visit Internal Medicine - [address] [phone] Daniel Mcintyre NP [address] [place], [place] documented as of this encounter Visit Diagnoses Not on filedocumented in this encounter Care Teams Laryngologist Relationship Specialty Start Date End Date Mariah Velasquez MD [address] [place] [address] PCP - General Internal Medicine 05/30/25 documented as of this encounter
--- OUTSIDE RECORDS SUMMARY | 2025-07-03 08:49 | XMS_ITS | Encounter Summary ---
Author Organization [facility] Address [address] [place] [phone] Care Team Providers Care Traveling Storekeeper Name Role Phone Mariah Velasquez MD Primary Care Provider [phone] Encounter Details Date Type Department Care Team (Late Contact Info) Description 05/14/[address] [facility] - Main Lab [address] [facility] [place] [address] Rosemary Carranza MD [address] [place], [place] [id number] Essential (primary) hypertension Social History Tobacco Use Types Packs/Day Years [...] as of this encounter Plan of Treatment Upcoming Encounters Date Type Department Care Team (Late st Contact Info) Description 07/21/2025 2:30 PM EDT Office Visit Internal Medicine - [address] [phone] Daniel Mcintyre NP [address] [place] [address] documented as of this encounter Procedures Procedure Name Priority Date/Time Associated Diagnosis Comments COMPLETE BLOOD COUNT Routine 05/15/2025 5:56 AM EDT Essential (primary) hypertension BASIC METABOLIC PANEL Routine 05/15/2025 5:56 AM EDT Essential (primary) hypertension documented in this encounter Results * Basic metabolic panel (05/15/2025 5:56 AM EDT) Sodium 141 133 - 145 mmol/L LAB CHEMISTRY METHOD 05/15/2025 12:01 PM [facility] Potassium 3.8 3.5 - 5.5 mmol/L LAB CHEMISTRY METHOD 05/15/2025 12:01 PM [facility] Chloride 106 96 - 110 mmol/L LAB CHEMISTRY METHOD 05/15/2025 12:01 PM [facility] CO2 30 21 - 32 mmol/L LAB CHEMISTRY METHOD 05/15/2025 12:01 PM [facility] Anion Gap 5 3 - 11 LAB CHEMISTRY METHOD 05/15/2025 12:01 PM [facility] Glucose 79 70 - 100 mg/dL LAB CHEMISTRY METHOD 05/15/2025 12:01 PM [facility] BUN 11 5 - 25 mg/dL LAB CHEMISTRY METHOD 05/15/2025 12:01 PM [facility] Creatinine 0.88 0.70 - 1.30 mg/dL LAB CHEMISTRY METHOD 05/15/2025 12:01 PM [facility] eGFR 85 >=60 mL/min/1. 73m2 LAB CHEMISTRY METHOD 05/15/2025 12:01 PM [facility] Comment:Calculation based on the Chronic Kidney Disease Epidemiology Collaboration (CKD-EPI) equation refit without adjustment for race. BUN/Creatinine Ratio 12.5 LAB CHEMISTRY METHOD 05/15/2025 12:01 PM [facility] Calcium 8.8 8.5 - 10.5 mg/dL LAB CHEMISTRY METHOD 05/15/2025 12:01 PM [facility] Blood Venous blood specimen / Unknown Venipuncture / Unknown 05/15/2025 5:56 AM EDT 05/15/2025 9:53 AM EDT us Rosemary Carranza MD LAB BLOOD ORDERABLES Final Resul t [facility] [address] [place] [address], * (ABNORMAL) Complete blood count (05/15/2025 5:56 AM EDT) [facility] WBC 5.4 4.8 - 10.8 K/mcL LAB HEMETOLOGY METHOD 05/15/2025 10:42 AM EDT [facility] RBC 4.70 4.50 - 5.50 M/mcL LAB HEMETOLOGY METHOD 05/15/2025 10:42 AM EDT [facility] Hemoglobin 13.6 13.5 - 17.5 g/dL LAB HEMETOLOGY METHOD 05/15/2025 10:42 AM EDT [facility] Hematocrit 41.7(L) 42.0 - 54.0 % LAB HEMETOLOGY METHOD 05/15/2025 10:42 AM EDT [facility] MCV 89.3 79.0 - 98.0 FL LAB HEMETOLOGY METHOD 05/15/2025 10:42 AM EDT [facility] MCH 29.1 27.0 - 32.0 pcg LAB HEMETOLOGY METHOD 05/15/2025 10:42 AM EDT [facility] MCHC 32.6 32.0 - 37.0 g/dL LAB HEMETOLOGY METHOD 05/15/2025 10:42 AM EDT [facility] RDW 13.6 11.0 - 15.0 % LAB HEMETOLOGY METHOD 05/15/2025 10:42 AM EDT [facility] Platelets 148 130 - 400 K/mcL LAB HEMETOLOGY METHOD 05/15/2025 10:42 AM EDT [facility] MPV 9.9 7.0 - 11.0 FL LAB HEMETOLOGY METHOD 05/15/2025 10:42 AM EDT [facility] NRBC 0.0 <1.0 % LAB HEMETOLOGY METHOD 05/15/2025 10:42 AM EDT [facility] NRBC Absolute 0.00 <0.10 K/mcL LAB HEMETOLOGY METHOD 05/15/2025 10:42 AM EDT [facility] Blood Venous blood specimen / Unknown Venipuncture / Unknown 05/15/2025 5:56 AM EDT 05/15/2025 9:53 AM EDT us Rosemary Carranza MD LAB BLOOD ORDERABLES Final Resul t [facility] [address] [place] [address], documented in this encounter Visit Diagnoses Diagnosis Essential (primary) hypertension Unspecified essential hypertension documented in this encounter Care Teams Traveling Storekeeper Relationship Specialty Start Date End Date Mariah Velasquez MD [address] [place], [place] PCP - General Internal Medicine 05/30/25 documented as of this encounter
--- OUTSIDE RECORDS SUMMARY | 2025-07-03 08:49 | XMS_ITS | Encounter Summary ---
Author Organization [facility] Address [id number] [place] [phone] Care Team Providers Care High [employer] Science Tutor Name Role Phone Mariah Velasquez MD Primary Care Provider [phone] Reason for Visit * Reason Onset Date Comments Faxed Order 06/28/2025 Domonique ([id number] ) Encounter Details Date Type Department Care Team (Late st Contact Info) Description 06/28/2025 Telephone Internal Medicine - [address] [address] [place] [phone] Mariah Velasquez MD [address] [place], [place] [address] Social History Tobacco Use Types Packs/Day [...] as of this encounter Progress Notes * Amber Manzo - 06/28/2025 10:59 AM EDT Faxed order received from Domonique. Orders placed in Mariah Velasquez MD bin for signing, please faxto [phone] documented in this encounter Plan of Treatment Upcoming Encounters Date Type Department Care Team (Late st Contact Info) Description 07/21/2025 2:30 PM EDT Office Visit Internal Medicine - [facility] [address] [place], [place] [phone] Daniel Mcintyre NP [address] [place], [place] documented as of this encounter Visit Diagnoses Not on filedocumented in this encounter Care Teams High [employer] Science Tutor Relationship Specialty Start Date End Date Mariah Velasquez MD [address] [place], [place] PCP - General Internal Medicine 05/30/25 documented as of this encounter
--- OUTSIDE RECORDS SUMMARY | 2025-07-03 08:49 | XMS_ITS | Encounter Summary ---
Author Organization [facility] Address [id number] [place] [phone] Care Team Providers Care Medical Billing Instructor Name Role Phone Mariah Velasquez MD Primary Care Provider [phone] Reason for Visit * Reason Onset Date Comments Faxed Order 06/12/2025 Domonique LAYTON ([id number]) Encounter Details Date Type Department Care Team (Late st Contact Info) Description 06/12/2025 Telephone Internal Medicine - [facility] [address] [place], [place] [phone] Mariah Velasquez MD [facility] [place] Social History Tobacco Use Types Packs/Day [...] encounter Progress Notes * Amber Manzo - 06/12/2025 12:02 PM EDT Faxed order received from Domonique. Orders placed in Dr. Menezes's bin for signing, please fax to [phone]. documented in this encounter Plan of Treatment Upcoming Encounters Date Type Department Care Team (Late st Contact Info) Description 07/21/2025 2:30 PM EDT Office Visit Internal Medicine - [facility] [address] [place], [place] [phone] Daniel Mcintyre NP [address] [place], [place] documented as of this encounter Visit Diagnoses Not on filedocumented in this encounter Care Teams Medical Billing Instructor Relationship Specialty Start Date End Date Mariah Velasquez MD [address] [place] [address] PCP - General Internal Medicine 05/30/25 documented as of this encounter
--- OUTSIDE RECORDS SUMMARY | 2025-07-03 08:49 | XMS_ITS | Encounter Summary ---
Author Organization [facility] Address [address] [place] [phone] Care Team Providers Care Administrative Officer Name Role Phone Mariah Velasquez MD Primary Care Provider [phone] Encounter Details Date Type Department Care Team (Late Contact Info) Description 08/30/2024 Lab Requisition [facility] - Main Lab [address] [facility] [place] [phone] Karri Matthews MD [address] [facility] [address] [place] [phone] Cutaneous abscess of back (any part, except [...] PM EDT Office Visit Internal Medicine - [address] [phone] Daniel Mcintyre NP [address] [place], [place] [phone] documented as of this encounter Procedures Procedure Name Priority Date/Time Associated Diagnosis Comments CULTURE WOUND WITH GRAM STAIN Routine 08/30/2024 12:00 AM EST Cutaneous abscess of back (any part, except buttock) documented in this encounter Results * (ABNORMAL) Culture wound with gram stain (08/30/2024 12:00 AM EST) Culture, Wound Normal Skin Harika 06/2024 10:31 AM [facility] Culture, Wound Jennifer parapsilosis(A) LEA 09/03/2024 10:31 AM EST [facility] Comment: The organism value for this result has been updated. These results have been appended to the previously preliminary verified report. Edited result: Previously reported as Yeast on 09/02/2024 at 1317 EST. Gram Stain Result No Epithelial cells(A) 09/03/2024 10:31 AM [facility] Gram Stain Result Few Polymorphonuclear leukocytes(A) 09/03/2024 10:31 AM [facility] Gram Stain Result Rare Gram positive cocci(A) 09/03/2024 10:31 AM [facility] Swab Structure of left shoulder region / Unknown 08/30/2024 08/30/2024 6:25 PM EST Karri Matthews MD LAB MICROBIOLOGY - GENERAL ORD ERABLES Final Result [facility] [address] [place] [address], documented in this encounter Visit Diagnoses Diagnosis Cutaneous abscess of back (any part, except buttock) documented in this encounter Care Teams Administrative Officer Relationship Specialty Start Date End Date Mariah Velasquez MD [address] [place], [place] PCP - General Internal Medicine 05/30/25 documented as of this encounter
--- OUTSIDE RECORDS SUMMARY | 2025-07-03 08:49 | XMS_ITS | Clinical Summary ---
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 Pathology was negative for malignancy and instead showed dense fibrous plaque. Patient's most recent surveillance chest CT scan shows no recurrence of the right diaphragmatic plaque, no worsening or new pulmonary nodules or thoracic adenopathy of concern. At this time the patient does not require any further ongoing CT scan surveillance. He may follow-up with our office on an as-needed basis. 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 01/22/2016 Hypertension, essential 01/22/2016 Hypothyroidism 01/22/2016 Thrombocytopenia ([facility] V24) 01/22/2016 Encounters Date Type Department Care Team Description 06/28/2025 Telephone [facility] [address] [place] [address] Mariah Velasquez MD 06/12/2025 Telephone [facility] [address] [place] [address] Mariah Velasquez MD 06/09/2025 Telephone Internal Medicine - [facility] [address] [place], [place] [phone] Mariah Velasquez MD 06/06/2025 Telephone [facility] [address] [place], [place] [address], [place] [phone] Mariah Velasquez MD 06/02/2025 Telephone Internal [facility] [address] [place], [place] [address] [address] Mariah Velasquez MD 06/01/2025 Telephone Internal [facility] [address] [place], [place] [address] [address] Mariah Velasquez MD 05/20/2025 Lab Requisition [facility] [address] [place] [phone] Rosemary Carranza MD Essential (primary) hypertension 05/14/2025 Lab Requisition [facility] [address] [place] [phone] Rosemary Carranza MD Essential (primary) hypertension 05/05/2025 Lab Requisition [facility] [address] [place] [phone] Rosemary Carranza MD Essential (primary) hypertension 05/02/2025 Lab Requisition [facility] [address] [place] [phone] Rosemary Carranza MD Other malaise 04/17/2025 2:57 PM EDT - 04/17/2025 11:17 PM EDT Emergency [facility] Emergency [address] [place] [phone] Discharge Disposition: Left Against Medical Advice 04/13/2025 11:14 AM EDT - 04/13/2025 11:59 PM EDT Hospital Encounter [facility] Xray [address] [place] [phone] Localized swelling, mass and lump, lower limb, bilateral Discharge Disposition: Home or Self Care 04/13/2025 11:14 AM EDT - 04/13/2025 11:59 PM EDT Hospital Encounter [facility] Xray [address] [place] [phone] Localized swelling, mass and lump, lower limb, bilateral Discharge Disposition: Home or Self Care from Last 3 Months Immunizations Name Administration Dates Next Due Influenza trivalent, 0.5mL ( Fluad) 65yo and older 08/23/2018,08/25/2017 Influenza trivalent, 0.5mL ( Fluzone High-dose) 65yo and older 08/03/2023,08/04/2022,08/09/2021,2019,08/01/2016 Influenza trivalent, with preservative (Fluzone; Afluria) 6mo and older 11/11/2016 Pfizer (ages 12 & older) Biv alent, COVID-19 12/10/2022 Td Tetanus diptheria (Tdvax) 7yo and older 12/21/2019 Tdap Tetanus diptheria acell ular pertussis (Boostrix; Adacel) 7yo and older 03/13/2021 Surgical History Surgery Date Site/Laterality Comments OTHER [...] vei ns of bilateral lower extremities Thrombocytopenia (CMS/HCC V24) 01/22/2016 D X:Thrombocytopenia (HCC) Allergic rhinitis 03/17/2016 DX:Allergic rh initis GERD (gastroesophageal reflux disease) 03/17/2016 DX:GERD (gastroesophageal reflux disease) History of prostate cancer 06/13/2016 DX:Nh story of prostate cancer; COMMENT: S/p RT, PSA low, f/u Gastroesophageal reflux dise ase without esophagitis 08/03/2018 DX:Gastroesophageal reflux d isease without esophagitis Parkinson disease ([facility] V 24, [facility] V28) 08/04/2022 DX:Parkinson disease ([facility]) Family History Relation Name Status Comments Brother [...] Sign Reading Time Taken Comments Blood Pressure 150/76 04/17/2025 8:33 PM EDT Pulse 81 04/17/2025 8:33 PM EDT Temperature 36.6 C (97.9 F) 04/17/2025 3:33 PM EDT Respiratory Rate 20 04/17/2025 8:33 PM EDT Oxygen Saturation 98% 04/17/2025 8:33 PM EDT Inhaled Oxygen Concentration - - Weight 81.6 kg (180 lb) 04/17/2025 3:33 PM EDT Height 175.3 cm (5' 9 ) 04/17/2025 3:33 PM EDT Body Mass Index 26.58 04/17/2025 3:33 PM EDT Plan of Treatment Upcoming Encounters Date Type Department Care Team (Late st Contact Info) Description 07/21/2025 2:30 PM EDT Office Visit Internal Medicine - [address] [phone] Daniel Mcintyre NP [address] [place] [id number] Health Maintenance Due Date Last Done Comments Pneumococcal Vaccine: 50+ Years (1 of 1 - PCV) 1991 Zoster Vaccines (1 of 2) 1991 RSV Immunization Adult Patients (1 - 1-dose 75+ series) 2016 Falls Risk Assessment 10/04/2022 Medicare Annual Wellness Visit 10/04/2022 Social Influencers of Health Screening 10/04/2022 Depression Screening 10/26/2024 COVID-19 Vaccine ( season) 2025 10/21/2023, 12/10/2022, 11/05/2022, Additional history exists Influenza Vaccine (#1) 2025 , 08/04/2022, 08/09/2021, Additional history exists Hypertension/CHF/CAD Annual BMP Blood Test 05/22/2026 05/22/2025, 05/15/2025, 05/08/2025, Additional history exists Cholesterol Screening (Lipid Panel) 04/17/2030 04/17/2025 DTaP,Tdap,and Td Vaccines (3 - Td or [...] age to complete this topic Meningococcal B Vaccine Aged Out No l onger eligible based on patient's age to complete this topic RSV Immunization Patients Under 20 months Aged Out No longer eligible based on patient's age to complete this topic Varicella Vaccines Aged Out No longer eligible based on patient's age to complete this topic Procedures Procedure Name Priority Date/Time Associated Diagnosis Comments BASIC METABOLIC PANEL Routine 05/22/2025 5:51 AM EDT Essential (primary) hypertension COMPLETE BLOOD COUNT Routine 05/22/2025 5:51 AM EDT Essential (primary) hypertension BASIC METABOLIC PANEL Routine 05/15/2025 5:56 AM EDT Essential (primary) hypertension COMPLETE BLOOD COUNT Routine 05/15/2025 5:56 AM EDT Essential (primary) hypertension BASIC METABOLIC PANEL Routine 05/08/2025 5:49 AM EDT Essential (primary) hypertension COMPLETE BLOOD COUNT Routine 05/08/2025 5:49 AM EDT Essential (primary) hypertension CBC WITH AUTO DIFFERENTIAL Routine 05/02/2025 5:39 AM EDT Other malaise BASIC METABOLIC PANEL Routine 05/02/2025 5:39 AM EDT Other malaise CBC AND DIFFERENTIAL Routine 05/02/2025 5:39 AM EDT Other malaise CBC WITH AUTO DIFFERENTIAL STAT 04/17/2025 4:06 PM EDT MAGNESIUM STAT 04/17/2025 4:06 PM EDT BASIC METABOLIC PANEL STAT 04/17/2025 4:06 PM EDT CBC AND DIFFERENTIAL STAT 04/17/2025 4:06 PM EDT CBC WITH AUTO DIFFERENTIAL Routine 04/17/2025 8:03 AM EDT Drug therapy Screening for diabetes mellitus Hyposmolality syndrome Hyperparathyroidism, unspecified (CMS/HCC V24) COMPREHENSIVE METABOLIC PANEL Routine 04/17/2025 8:03 AM EDT Drug therapy Screening for diabetes mellitus Hyposmolality syndrome Hyperparathyroidism, unspecified (CMS/HCC V24) LIPID PANEL WITH REFLEX TO DIRECT LDL Routine 04/17/2025 8:03 AM EDT Drug therapy Screening for diabetes mellitus Hyposmolality syndrome Hyperparathyroidism, unspecified (CMS/HCC V24) VITAMIN B12 Routine 04/17/2025 8:03 AM EDT Drug therapy Screening for diabetes mellitus Hyposmolality syndrome Hyperparathyroidism, unspecified (CMS/HCC V24) CBC AND DIFFERENTIAL Routine 04/17/2025 8:03 AM EDT Drug therapy Screening for diabetes mellitus Hyposmolality syndrome Hyperparathyroidism, unspecified (CMS/HCC V24) THYROXINE FREE Routine 04/17/2025 8:03 AM EDT Drug therapy Screening for diabetes mellitus Hyposmolality syndrome Hyperparathyroidism, unspecified (CMS/HCC V24) HEMOGLOBIN A1C Routine 04/17/2025 8:03 AM EDT Drug therapy Screening for diabetes mellitus Hyposmolality syndrome Hyperparathyroidism, unspecified (CMS/HCC V24) THYROID STIMULATING HORMONE Routine 04/17/2025 8:03 AM EDT Drug therapy Screening for diabetes mellitus Hyposmolality syndrome Hyperparathyroidism, unspecified (CMS/HCC V24) MICROALBUMIN CREATININE URINE RATIO Routine 04/17/2025 8:03 AM EDT Drug therapy Screening for diabetes mellitus Hyposmolality syndrome Hyperparathyroidism, unspecified (CMS/HCC V24) VITAMIN D 25 HYDROXY Routine 04/17/2025 8:03 AM EDT Drug therapy Screening for diabetes mellitus Hyposmolality syndrome Hyperparathyroidism, unspecified (CMS/HCC V24) XR FOREARM BILAT Routine 04/13/2025 11:3 5 AM EDT Localized swelling, mass and lump, lower limb, bilateral XR ELBOW 3+ VIEWS BILAT Routine 04/13/2025 11:35 AM EDT Localized swelling, mass and lump, lower limb, bilateral from Last 3 Months Results * Complete blood count (05/22/2025 5:51 AM EDT) Only the most recent of3 resultswithin the time period is included. [facility] WBC 6.0 4.8 - 10.8 K/mcL LAB HEMETOLOGY METHOD 05/22/2025 10:50 AM [facility] RBC 4.80 4.50 - 5.50 M/mcL LAB HEMETOLOGY METHOD 05/22/2025 10:50 AM [facility] LAB Hemoglobin 13.9 13.5 - 17.5 g/dL LAB HEMETOLOGY METHOD 05/22/2025 10:50 AM [facility] LAB Hematocrit 42.5 42.0 - 54.0 % LAB HEMETOLOGY METHOD 05/22/2025 10:50 AM [facility] LAB MCV 88.9 79.0 - 98.0 FL LAB HEMETOLOGY METHOD 05/22/2025 10:50 AM [facility] LAB MCH 29.1 27.0 - 32.0 pcg LAB HEMETOLOGY METHOD 05/22/2025 10:50 AM [facility] LAB MCHC 32.7 32.0 - 37.0 g/dL LAB HEMETOLOGY METHOD 05/22/2025 10:50 AM [facility] LAB RDW 13.9 11.0 - 15.0 % LAB HEMETOLOGY METHOD 05/22/2025 10:50 AM [facility] LAB Platelets 138 130 - 400 K/mcL LAB HEMETOLOGY METHOD 05/22/2025 10:50 AM [facility] LAB MPV 10.1 7.0 - 11.0 FL LAB HEMETOLOGY METHOD 05/22/2025 10:50 AM [facility] LAB NRBC 0.0 <1.0 % LAB HEMETOLOGY METHOD 05/22/2025 10:50 AM [facility] LAB NRBC Absolute 0.00 <0.10 K/mcL LAB HEMETOLOGY METHOD 05/22/2025 10:50 AM [facility] LAB Blood Venous blood specimen / Unknown Venipuncture / Unknown 05/22/2025 5:51 AM EDT 05/22/2025 9:51 AM EDT us Rosemary Carranza MD LAB BLOOD ORDERABLES Final Resul t [facility] [address] [place] [address], [place] [phone] * (ABNORMAL) Basic metabolic panel (05/22/2025 5:51 AM EDT) Only the most recent of5 resultswithin the time period is included. Sodium 141 133 - 145 mmol/L LAB CHEMISTRY METHOD 05/22/2025 11:05 AM [facility] LAB Potassium 3.7 3.5 - 5.5 mmol/L LAB CHEMISTRY METHOD 05/22/2025 11:05 AM [facility] Chloride 107 96 - 110 mmol/L LAB CHEMISTRY METHOD 05/22/2025 11:05 AM [facility] CO2 30 21 - 32 mmol/L LAB CHEMISTRY METHOD 05/22/2025 11:05 AM [facility] Anion Gap 4 3 - 11 LAB CHEMISTRY METHOD 05/22/2025 11:05 AM [facility] Glucose 89 70 - 100 mg/dL LAB CHEMISTRY METHOD 05/22/2025 11:05 AM [facility] BUN 12 5 - 25 mg/dL LAB CHEMISTRY METHOD 05/22/2025 11:05 AM [facility] Creatinine 0.67(L) 0.70 - 1.30 mg/dL LAB CHEMISTRY METHOD 05/22/2025 11:05 AM [facility] LAB eGFR 93 >=60 mL/min/1. 73m2 LAB CHEMISTRY METHOD 05/22/2025 11:05 AM EDT [facility] Comment:Calculation based on the Chronic Kidney Disease Epidemiology Collaboration (CKD-EPI) equation refit without adjustment for race. BUN/Creatinine Ratio 17.9 LAB CHEMISTRY METHOD 05/22/2025 11:05 AM T [facility] Calcium 9.0 8.5 - 10.5 mg/dL LAB CHEMISTRY METHOD 05/22/2025 11:05 AM T [facility] Blood Venous blood specimen / Unknown Venipuncture / Unknown 05/22/2025 5:51 AM EDT 05/22/2025 11:05 AM EDT us Rosemary Carranza MD LAB BLOOD ORDERABLES Final Resul t [facility] [address] [place] [address], * CBC auto differential (05/02/2025 5:39 AM EDT) Only the most recent of3 resultswithin the time period is included. WBC 5.6 4.8 - 10.8 K/mcL LAB HEMETOLOGY METHOD 05/02/2025 9:29 AM [facility] RBC 5.30 4.50 - 5.50 M/mcL LAB HEMETOLOGY METHOD 05/02/2025 9:29 AM [facility] Hemoglobin 15.5 13.5 - 17.5 g/dL LAB HEMETOLOGY METHOD 05/02/2025 9:29 AM [facility] LAB Hematocrit 45.5 42.0 - 54.0 % LAB HEMETOLOGY METHOD 05/02/2025 9:29 AM [facility] LAB MCV 86.5 79.0 - 98.0 FL LAB HEMETOLOGY METHOD 05/02/2025 9:29 AM [facility] LAB MCH 29.5 27.0 - 32.0 pcg LAB HEMETOLOGY METHOD 05/02/2025 9:29 AM [facility] LAB MCHC 34.1 32.0 - 37.0 g/dL LAB HEMETOLOGY METHOD 05/02/2025 9:29 AM [facility] RDW 13.3 11.0 - 15.0 % LAB HEMETOLOGY METHOD 05/02/2025 9:29 AM [facility] Platelets 215 130 - 400 K/mcL LAB HEMETOLOGY METHOD 05/02/2025 9:29 AM [facility] MPV 11.0 7.0 - 11.0 FL LAB HEMETOLOGY METHOD 05/02/2025 9:29 AM [facility] NRBC 0.0 <1.0 % LAB HEMETOLOGY METHOD 05/02/2025 9:29 AM [facility] NRBC Absolute 0.00 <0.10 K/mcL LAB HEMETOLOGY METHOD 05/02/2025 9:29 AM [facility] Neutrophils Relative 73.1 % LAB HEMETOLOGY METHOD 05/02/2025 9:29 AM [facility] Lymphocytes Relative 18.2 % LAB HEMETOLOGY METHOD 05/02/2025 9:29 AM [facility] Monocytes Relative 7.4 % LAB HEMETOLOGY METHOD 05/02/2025 9:29 AM [facility] Eosinophils Relative 0.4 % LAB HEMETOLOGY METHOD 05/02/2025 9:29 AM [facility] Basophils Relative 0.4 % LAB HEMETOLOGY METHOD 05/02/2025 9:29 AM [facility] Immature Granulocytes Relative 0.5 % LAB HEMETOLOGY METHOD 05/02/2025 9:29 AM [facility] Neutrophils Absolute 4.07 1.50 - 7.00 K/mcL LAB HEMETOLOGY METHOD 05/02/2025 9:29 AM EDT [facility] Lymphocytes Absolute 1.01 1.00 - 5.00 K/[facility] LAB HEMETOLOGY METHOD 05/02/2025 9:29 AM EDT [facility] Monocytes Absolute 0.41 0.20 - 1.00 K/[facility] LAB HEMETOLOGY METHOD 05/02/2025 9:29 AM EDT [facility] Eosinophils Absolute 0.02 0.00 - 0.50 K/[facility] LAB HEMETOLOGY METHOD 05/02/2025 9:29 AM EDT [facility] Basophils Absolute 0.02 0.00 - 0.20 K/[facility] LAB HEMETOLOGY METHOD 05/02/2025 9:29 AM EDT [facility] Immature Granulocytes Absolute 0.03 0.00 - 0.03 K/[facility] LAB HEMETOLOGY METHOD 05/02/2025 9:29 AM EDT [facility] Blood Venous blood specimen / Unknown Venipuncture / Unknown 05/02/2025 5:39 AM EDT 05/02/2025 8:57 AM EDT Rosemary Carranza MD LAB BLOOD ORDERABLES Final Resul t [facility] [address] [place] [address], * Magnesium (04/17/2025 4:06 PM EDT) Magnesium 2.4 1.9 - 2.6 mg/dL LAB CHEMISTRY METHOD 04/17/2025 5:08 PM EDT [facility] Blood Venous blood specimen / Unknown Venipuncture / Unknown 04/17/2025 4:06 PM EDT 04/17/2025 4:16 PM EDT Cory Cazares MD LAB BLOOD ORDERABLES Final Result Performing Organization Address City/[facility]/ZIP Co de Phone Number [facility] [address] [place] [address], [place] [phone] * (ABNORMAL) Lipid panel with reflex to direct LDL (04/17/2025 8:03 AM EDT) Cholesterol 176 0 - 200 mg/dL LAB CHEMISTRY METHOD 04/17/2025 9:42 AM EDT [facility] Triglycerides 87 0 - 150 mg/dL LAB CHEMISTRY METHOD 04/17/2025 9:42 AM EDT [facility] HDL 46 >=40 mg/dL LAB CHEMISTRY METHOD 04/17/2025 9:42 AM EDT [facility] LDL Calculated 113(H) 0 - 100 mg/dL LAB CHEMISTRY METHOD 04/17/2025 9:42 AM EDT [facility] VLDL Cholesterol Ted 17.4 mg/dL LAB CHEMISTRY METHOD 04/17/2025 9:42 AM EDT [facility] Non HDL Chol. (LDL+VLDL) 130 <145 mg/dL LAB CHEMISTRY METHOD 04/17/2025 9:42 AM EDT [facility] Chol/HDL Ratio 3.8 0.0 - 4.4 LAB CHEMISTRY METHOD 04/17/2025 9:42 AM EDT [facility] Blood Venous blood specimen / Unknown Venipuncture / Unknown 04/17/2025 8:03 AM EDT 04/17/2025 8:48 AM EDT [facility] LAB BLOOD ORDERABLES Final Res ult [facility] [address] [place] [address], [place] [phone] * (ABNORMAL) Microalbumin creatinine urine ratio (04/17/2025 8:03 AM EDT) Creatinine, Urine 318.0 mg/dL LAB CHEMISTRY METHOD 04/17/2025 9:30 PM EDT [facility] Microalb, Ur 31.6(H) 0.0 - 29.0 mg/L LAB CHEMISTRY METHOD 04/17/2025 9:30 PM EDT [facility] Microalb/Crea t Ratio 10 <30 mg/g creat LAB CHEMISTRY METHOD 04/17/2025 9:30 PM EDT [facility] Urine Urine specimen obtained by clean catch procedure / Unknown Non-blood Collection / Unknown 04/17/2025 8:03 AM EDT 04/17/2025 2:20 PM EDT [facility] LAB URINE ORDERABLES Final Res ult Performing Organization Address [facility]/ZIP Co de Phone Number [facility] [address] [place] [address], [place] [phone] * Vitamin D 25 hydroxy (04/17/2025 8:03 AM EDT) Vit D, 25-Hydroxy 30.9 30.0 - 80.0 ng/mL LAB CHEMISTRY METHOD 04/17/2025 12:35 PM EDT [facility] Blood Venous blood specimen / Unknown Venipuncture / Unknown 04/17/2025 8:03 AM EDT 04/17/2025 8:48 AM EDT [facility] LAB BLOOD ORDERABLES Final Res ult [facility] [address] [place] [address], [place] [phone] * (ABNORMAL) Thyroid stimulating hormone (04/17/2025 8:03 AM EDT) TSH 5.96(H) 0.40 - 4.00 mcIU/mL LAB CHEMISTRY METHOD 04/17/2025 12:36 PM EDT [facility] Blood Venous blood specimen / Unknown Venipuncture / Unknown 04/17/2025 8:03 AM EDT 04/17/2025 8:48 AM EDT us [facility] LAB BLOOD ORDERABLES Final Res ult [facility] [address] [place] [address], [place] [phone] * Thyroxine free (04/17/2025 8:03 AM EDT) Free T4 1.27 0.70 - 1.80 ng/dL LAB CHEMISTRY METHOD 04/17/2025 12:36 PM EDT [facility] Blood Venous blood specimen / Unknown Venipuncture / Unknown 04/17/2025 8:03 AM EDT 04/17/2025 8:48 AM EDT [facility] LAB BLOOD ORDERABLES Final Res ult Performing Organization Address [facility]/ZIP Co de Phone Number [facility] [address] [place] [address], * Hemoglobin A1c (04/17/2025 8:03 AM EDT) Hemoglobin A1C 5.5 <6.5 % LAB CHEMISTRY METHOD 04/17/2025 1:32 PM EDT [facility] Mean Bld Glu Estim. 111 mg/dL LAB CHEMISTRY METHOD 04/17/2025 1:32 PM EDT [facility] Blood Venous blood specimen / Unknown Venipuncture / Unknown 04/17/2025 8:03 AM EDT 04/17/2025 8:46 AM EDT [facility] LAB BLOOD ORDERABLES Final Res ult [facility] [address] [place] [address], [place] [phone] * Vitamin B12 (04/17/2025 8:03 AM EDT) [facility] Vitamin B-12 294 250 - 900 pcg/mL LAB CHEMISTRY METHOD 04/17/2025 11:26 AM EDT [facility] Blood Venous blood specimen / Unknown Venipuncture / Unknown 04/17/2025 8:03 AM EDT 04/17/2025 8:48 AM EDT [facility] LAB BLOOD ORDERABLES Final Res ult [facility] [address] [place] [address], [place] [phone] * (ABNORMAL) Comprehensive metabolic panel (04/17/2025 8:03 AM EDT) [facility] Sodium 147(H) 133 - 145 mmol/L LAB CHEMISTRY METHOD 04/17/2025 9:50 AM [facility] Potassium 4.0 3.5 - 5.5 mmol/L LAB CHEMISTRY METHOD 04/17/2025 9:50 AM [facility] Chloride 112(H) 96 - 110 mmol/L LAB CHEMISTRY METHOD 04/17/2025 9:50 AM [facility] CO2 27 21 - 32 mmol/L LAB CHEMISTRY METHOD 04/17/2025 9:50 AM [facility] Anion Gap 8 3 - 11 LAB CHEMISTRY METHOD 04/17/2025 9:50 AM [facility] Glucose 107(H) 70 - 100 mg/dL LAB CHEMISTRY METHOD 04/17/2025 9:50 AM [facility] BUN 20 5 - 25 mg/dL LAB CHEMISTRY METHOD 04/17/2025 9:50 AM [facility] Creatinine 1.09 0.70 - 1.30 mg/dL LAB CHEMISTRY METHOD 04/17/2025 9:50 AM [facility] eGFR 67 >=60 mL/min/1. 73m2 LAB CHEMISTRY METHOD 04/17/2025 9:50 AM [facility] Comment:Calculation based on the Chronic Kidney Disease Epidemiology Collaboration (CKD-EPI) equation refit without adjustment for race. BUN/Creatinine Ratio 18.3 LAB CHEMISTRY METHOD 04/17/2025 9:50 AM [facility] Calcium 8.6 8.5 - 10.5 mg/dL LAB CHEMISTRY METHOD 04/17/2025 9:50 AM [facility] AST (SGOT) 12 10 - 42 unit/L LAB CHEMISTRY METHOD 04/17/2025 9:50 AM [facility] ALT (SGPT) 12 10 - 60 unit/L LAB CHEMISTRY METHOD 04/17/2025 9:50 AM [facility] Alkaline Phosphatase 100 42 - 121 unit/L LAB CHEMISTRY METHOD 04/17/2025 9:50 AM [facility] Total Protein 6.4 6.0 - 8.0 g/dL LAB CHEMISTRY METHOD 04/17/2025 9:50 AM [facility] Albumin 3.6 3.2 - 5.0 g/dL LAB CHEMISTRY METHOD 04/17/2025 9:50 AM [facility] Total Bilirubin 0.8 0.0 - 1.4 mg/dL LAB CHEMISTRY METHOD 04/17/2025 9:50 AM [facility] Blood Venous blood specimen / Unknown Venipuncture / Unknown 04/17/2025 8:03 AM EDT 04/17/2025 8:48 AM EDT us [facility] LAB BLOOD ORDERABLES Final Res ult [facility] [address] [place] [address], * XR Forearm bilat (04/13/2025 11:35 AM EDT) Anatomical Region Laterality Modality Upper Extremities, Elbow Bilateral Radiogr aphic Imaging 04/14/2025 10:4 3 AM EDT Impressions 04/14/2025 10:44 AM EDT Normal examination of the radius and ulna bilaterally. Code 06234, 28110 -------- FINAL REPORT -------- Dictated By: Bj Sosa Dictated Date: 04/14/2025 10:43 ET Assigned Physician: Bj Sosa Reviewed and Electronically Signed By: Bj Sosa Signed Date: 04/14/2025 10:44 ET Workstation ID: [id number] Transcribed By: Self Edit Transcribed Date: 04/14/2025 10:43 ET Narrative 04/14/2025 10:44 AM EDT HISTORY: The patient is an 84-year-old male with pain in the first forearms bilaterally. No history of trauma is provided. FINDINGS: AP and lateral radiographs of the right radius and ulna, along with AP and lateral radiographs of the left radius and ulna, are obtained. The study demonstrates no fracture, dislocation, arthritic change, or other bony abnormality in either forearm. Atherosclerotic arterial calcifications are noted. Procedure Note Bj Sosa MD - 04/14/2025 HISTORY: The patient is an 84-year-old male with pain in the firstforearms bilaterally. No history of trauma is provided. FINDINGS: AP and lateral radiographs of the right radius and ulna, alongwith AP and lateral radiographs of the left radius and ulna, are obtained.The study demonstrates no fracture, dislocation, arthritic change, orother bony abnormality in either forearm. Atherosclerotic arterialcalcifications are noted. IMPRESSION: Normal examination of the radius and ulna bilaterally. Code 67613, 90223 -------- FINAL REPORT -------- Dictated By: Bj Sosa Dictated Date: 04/14/2025 10:43 ET Assigned Physician: Bj Sosa Reviewed and Electronically Signed By: Bj Sosa Signed Date: 04/14/2025 10:44 ET Workstation ID: [id number] Transcribed By: Self Edit Transcribed Date: 04/14/2025 10:43 ET Ga NGUYEN IMG XR PROCEDURES Final Result * XR Elbow 3+ Views bilat (04/13/2025 11:35 AM EDT) Anatomical Region Laterality Modality Upper Extremities, Elbow Bilateral Radiogr aphic Imaging 04/14/2025 10:4 2 AM EDT Impressions 04/14/2025 10:43 AM EDT Normal examination of the elbows bilaterally. Code 34652, 07231 -------- FINAL REPORT -------- Dictated By: Bj Sosa Dictated Date: 04/14/2025 10:42 ET Assigned Physician: Bj Sosa Reviewed and Electronically Signed By: Bj Sosa Signed Date: 04/14/2025 10:43 ET Workstation ID: [id number] Transcribed By: Self Edit Transcribed Date: 04/14/2025 10:42 ET Narrative 04/14/2025 10:43 AM EDT HISTORY: The patient is an 84-year-old male with bilateral elbow pain. No history of trauma is provided. FINDINGS: AP, lateral, and oblique views of the right elbow, along with AP, lateral, and oblique views of the left elbow, are obtained. The study demonstrates no fracture, dislocation, arthritic change, or other bony abnormality in either elbow. No elbow joint effusion is seen. Procedure Note Bj Sosa MD - 04/14/2025 HISTORY: The patient is an 84-year-old male with bilateral elbow pain. Nohistory of trauma is provided. FINDINGS: AP, lateral, and oblique views of the right elbow, along withAP, lateral, and oblique views of the left elbow, are obtained. The studydemonstrates no fracture, dislocation, arthritic change, or other bonyabnormality in either elbow. No elbow joint effusion is seen. IMPRESSION: Normal examination of the elbows bilaterally. Code 08937, 70192 -------- FINAL REPORT -------- Dictated By: Bj Sosa Dictated Date: 04/14/2025 10:42 ET Assigned Physician: Bj Sosa Reviewed and Electronically Signed By: Bj Sosa Signed Date: 04/14/2025 10:43 ET Workstation ID: [id number] Transcribed By: Self Edit Transcribed Date: 04/14/2025 10:42 ET us Ga NGUYEN IMG XR PROCEDURES Final Result from Last 3 Months Insurance [employer] MEDICARE Advance Directives Documents on File Type Date Recorded Patient Accounts Payable Bookkeeper Expl anation Health Care Decision (hx) 03/16/2021 [...] (hx) 03/16/2021 AD ROCHA DIRECTIVE Care Teams Entry Level Accountant Relationship Specialty Start Date End Date Mariah Velasquez MD [address] [facility] [place] [address] PCP - General Internal Medicine 05/30/25
--- OUTSIDE RECORDS SUMMARY | 2025-07-03 08:49 | XMS_ITS | Encounter Summary ---
Author Organization [facility] Address [address] [place] [address] Care Team Providers Care Nursing Aide Name Role Phone Mariah Velasquez MD Primary Care Provider [phone] Encounter Details Date Type Department Care Team (Late Contact Info) Description 05/20/2025 Lab Requisition [facility] - Main Lab [address] [facility] [place] [address] Rosemary Carranza MD [address] [place], [place] [phone] Essential (primary) hypertension Social History Tobacco Use [...] PM EDT Office Visit Internal Medicine - [address] [phone] Daniel Mcintyre NP [address] [place] [address] documented as of this encounter Procedures Procedure Name Priority Date/Time Associated Diagnosis Comments COMPLETE BLOOD COUNT Routine 05/22/2025 5:51 AM EDT Essential (primary) hypertension BASIC METABOLIC PANEL Routine 05/22/2025 5:51 AM EDT Essential (primary) hypertension documented in this encounter Results * (ABNORMAL) Basic metabolic panel (05/22/2025 5:51 AM EDT) Sodium 141 133 - 145 mmol/L LAB CHEMISTRY METHOD 05/22/2025 11:05 AM [facility] Potassium 3.7 3.5 - 5.5 mmol/L LAB CHEMISTRY METHOD 05/22/2025 11:05 AM [facility] Chloride 107 96 - 110 mmol/L LAB CHEMISTRY METHOD 05/22/2025 11:05 AM [facility] CO2 30 21 - 32 mmol/L LAB CHEMISTRY METHOD 05/22/2025 11:05 AM [facility] Anion Gap 4 3 - 11 LAB CHEMISTRY METHOD 05/22/2025 11:05 AM [facility] Glucose 89 70 - 100 mg/dL LAB CHEMISTRY METHOD 05/22/2025 11:05 AM [facility] BUN 12 5 - 25 mg/dL LAB CHEMISTRY METHOD 05/22/2025 11:05 AM [facility] Creatinine 0.67(L) 0.70 - 1.30 mg/dL LAB CHEMISTRY METHOD 05/22/2025 11:05 AM [facility] eGFR 93 >=60 mL/min/1. 73m2 LAB CHEMISTRY METHOD 05/22/2025 11:05 AM [facility] Comment:Calculation based on the Chronic Kidney Disease Epidemiology Collaboration (CKD-EPI) equation refit without adjustment for race. BUN/Creatinine Ratio 17.9 LAB CHEMISTRY METHOD 05/22/2025 11:05 AM [facility] Calcium 9.0 8.5 - 10.5 mg/dL LAB CHEMISTRY METHOD 05/22/2025 11:05 AM [facility] Blood Venous blood specimen / Unknown Venipuncture / Unknown 05/22/2025 5:51 AM EDT 05/22/2025 11:05 AM EDT Rosemary Carranza MD LAB BLOOD ORDERABLES Final Resul t [facility] [address] [place] [address], * Complete blood count (05/22/2025 5:51 AM EDT) [facility] WBC 6.0 4.8 - 10.8 K/mcL LAB HEMETOLOGY METHOD 05/22/2025 10:50 AM EDT [facility] RBC 4.80 4.50 - 5.50 M/mcL LAB HEMETOLOGY METHOD 05/22/2025 10:50 AM EDT [facility] Hemoglobin 13.9 13.5 - 17.5 g/dL LAB HEMETOLOGY METHOD 05/22/2025 10:50 AM EDT [facility] Hematocrit 42.5 42.0 - 54.0 % LAB HEMETOLOGY METHOD 05/22/2025 10:50 AM EDT [facility] MCV 88.9 79.0 - 98.0 FL LAB HEMETOLOGY METHOD 05/22/2025 10:50 AM EDT [facility] MCH 29.1 27.0 - 32.0 pcg LAB HEMETOLOGY METHOD 05/22/2025 10:50 AM EDT [facility] MCHC 32.7 32.0 - 37.0 g/dL LAB HEMETOLOGY METHOD 05/22/2025 10:50 AM EDT [facility] RDW 13.9 11.0 - 15.0 % LAB HEMETOLOGY METHOD 05/22/2025 10:50 AM EDT [facility] Platelets 138 130 - 400 K/mcL LAB HEMETOLOGY METHOD 05/22/2025 10:50 AM EDT [facility] MPV 10.1 7.0 - 11.0 FL LAB HEMETOLOGY METHOD 05/22/2025 10:50 AM EDT [facility] NRBC 0.0 <1.0 % LAB HEMETOLOGY METHOD 05/22/2025 10:50 AM EDT [facility] NRBC Absolute 0.00 <0.10 K/mcL LAB HEMETOLOGY METHOD 05/22/2025 10:50 AM EDT [facility] Blood Venous blood specimen / Unknown Venipuncture / Unknown 05/22/2025 5:51 AM EDT 05/22/2025 9:51 AM EDT us Rosemary Carranza MD LAB BLOOD ORDERABLES Final Resul t [facility] [address] [place] [address], documented in this encounter Visit Diagnoses Diagnosis Essential (primary) hypertension Unspecified essential hypertension documented in this encounter Care Teams Nursing Aide Relationship Specialty Start Date End Date Mariah Velasquez MD [address] [place], [place] PCP - General Internal Medicine 05/30/25 documented as of this encounter
--- OUTSIDE RECORDS SUMMARY | 2025-07-03 08:49 | XMS_ITS | Encounter Summary ---
Author Organization [facility] Address [address] [place] [address] Care Team Providers Care Livestock Feeder Name Role Phone Mariah Velasquez MD Primary Care Provider [phone] Reason for Visit * Reason Onset Date Comments [facility] 06/09/2025 Encounter Details Date Type Department Care Team (Late st Contact Info) Description 06/09/2025 Telephone Internal Medicine - [facility] [address] [place], [place] [phone] Mariah Velasquez MD [address] [place] [address] Social History Tobacco Use Types Packs/Day Years [...] as of this encounter Progress Notes * Vijay Rendon MD - 06/12/2025 6:45 PM EDT Noted. * Angie Gutierrez LPN - 06/09/2025 1:12 PM EDT noted * Rajat Juarez - 06/09/2025 1:06 PM EDT [facility] CALL Which [facility] office is calling? [place] Full name of caller: Pablo The caller is A Physical Therapist Is the caller at the patients home?: no Reason for call: Caller would like report missed visit today and resume services as normal on Thursday Does caller need an urgent call back? no Was CONTACT Telephone # obtained above?: yes Fax #: n/a documented in this encounter Plan of Treatment Upcoming Encounters Date Type Department Care Team (Late st Contact Info) Description 07/21/2025 2:30 PM EDT Office Visit Internal Medicine - [address] [phone] Daniel Mcintyre NP [address] [place] [address] documented as of this encounter Visit Diagnoses Not on filedocumented in this encounter Care Teams Livestock Feeder Relationship Specialty Start Date End Date Mariah Velasquez MD [address] [place] [address] PCP - General Internal Medicine 05/30/25 documented as of this encounter
--- OUTSIDE RECORDS SUMMARY | 2025-07-03 08:49 | XMS_ITS | Encounter Summary ---
Author Organization [facility] Address [address] [place] [phone] Care Team Providers Care Dishroom Attendant Name Role Phone Mariah Velasquez MD Primary Care Provider [phone] Encounter Details Date Type Department Care Team (Late Contact Info) Description 05/05/2025 Lab Requisition [facility] - Main Lab [address] [facility] [place] [address] Rosemary Carranza MD [address] [place], [place] [phone] Essential (primary) hypertension Social History Tobacco Use [...] PM EDT Office Visit Internal Medicine - [address] [phone] Daniel Mcintyre NP [address] [place] [address] documented as of this encounter Procedures Procedure Name Priority Date/Time Associated Diagnosis Comments COMPLETE BLOOD COUNT Routine 05/08/2025 5:49 AM EDT Essential (primary) hypertension BASIC METABOLIC PANEL Routine 05/08/2025 5:49 AM EDT Essential (primary) hypertension documented in this encounter Results * Basic metabolic panel (05/08/2025 5:49 AM EDT) Sodium 139 133 - 145 mmol/L LAB CHEMISTRY METHOD 05/08/2025 4:21 PM [facility] Potassium 4.0 3.5 - 5.5 mmol/L LAB CHEMISTRY METHOD 05/08/2025 4:21 PM [facility] Chloride 103 96 - 110 mmol/L LAB CHEMISTRY METHOD 05/08/2025 4:21 PM [facility] CO2 29 21 - 32 mmol/L LAB CHEMISTRY METHOD 05/08/2025 4:21 PM [facility] Anion Gap 7 3 - 11 LAB CHEMISTRY METHOD 05/08/2025 4:21 PM [facility] Glucose 82 70 - 100 mg/dL LAB CHEMISTRY METHOD 05/08/2025 4:21 PM [facility] BUN 16 5 - 25 mg/dL LAB CHEMISTRY METHOD 05/08/2025 4:21 PM [facility] Creatinine 0.87 0.70 - 1.30 mg/dL LAB CHEMISTRY METHOD 05/08/2025 4:21 PM [facility] eGFR 86 >=60 mL/min/1. 73m2 LAB CHEMISTRY METHOD 05/08/2025 4:21 PM [facility] Comment:Calculation based on the Chronic Kidney Disease Epidemiology Collaboration (CKD-EPI) equation refit without adjustment for race. BUN/Creatinine Ratio 18.4 LAB CHEMISTRY METHOD 05/08/2025 4:21 PM [facility] Calcium 9.1 8.5 - 10.5 mg/dL LAB CHEMISTRY METHOD 05/08/2025 4:21 PM [facility] Blood Venous blood specimen / Unknown Venipuncture / Unknown 05/08/2025 5:49 AM EDT 05/08/2025 9:49 AM EDT us Rosemary Carranza MD LAB BLOOD ORDERABLES Final Resul t [facility] [address] [place] [address], * Complete blood count (05/08/2025 5:49 AM EDT) [facility] WBC 5.2 4.8 - 10.8 K/mcL LAB HEMETOLOGY METHOD 05/08/2025 10:52 AM EDT [facility] RBC 5.00 4.50 - 5.50 M/mcL LAB HEMETOLOGY METHOD 05/08/2025 10:52 AM EDT [facility] Hemoglobin 14.6 13.5 - 17.5 g/dL LAB HEMETOLOGY METHOD 05/08/2025 10:52 AM EDT [facility] Hematocrit 44.1 42.0 - 54.0 % LAB HEMETOLOGY METHOD 05/08/2025 10:52 AM EDT [facility] MCV 88.6 79.0 - 98.0 FL LAB HEMETOLOGY METHOD 05/08/2025 10:52 AM EDT [facility] MCH 29.3 27.0 - 32.0 pcg LAB HEMETOLOGY METHOD 05/08/2025 10:52 AM EDT [facility] MCHC 33.1 32.0 - 37.0 g/dL LAB HEMETOLOGY METHOD 05/08/2025 10:52 AM EDT [facility] RDW 13.5 11.0 - 15.0 % LAB HEMETOLOGY METHOD 05/08/2025 10:52 AM [facility] Platelets 171 130 - 400 K/mcL LAB HEMETOLOGY METHOD 05/08/2025 10:52 AM EDT [facility] MPV 10.3 7.0 - 11.0 FL LAB HEMETOLOGY METHOD 05/08/2025 10:52 AM EDT [facility] NRBC 0.0 <1.0 % [facility] 05/08/2025 10:52 AM EDT [facility] NRBC Absolute 0.00 <0.10 K/mcL LAB HEMETOLOGY METHOD 05/08/2025 10:52 AM EDT [facility] Blood Venous blood specimen / Unknown Venipuncture / Unknown 05/08/2025 5:49 AM EDT 05/08/2025 9:52 AM EDT us Rosemary Carranza MD LAB BLOOD ORDERABLES Final Resul t [facility] [address] [place] [address], documented in this encounter Visit Diagnoses Diagnosis Essential (primary) hypertension Unspecified essential hypertension documented in this encounter Care Teams Dishroom Attendant Relationship Specialty Start Date End Date Mariah Velasquez MD [address] [place], [place] PCP - General Internal Medicine 05/30/25 documented as of this encounter
--- OUTSIDE RECORDS SUMMARY | 2025-07-03 08:49 | XMS_ITS | Encounter Summary ---
Author Organization [facility] Address [address] [place] [phone] Care Team Providers Care Pole Maker Name Role Phone Mariah Velasquez MD Primary Care Provider [phone] Encounter Details Date Type Department Care Team (Late Contact Info) Description 05/02/[address] [facility] - Main Lab [address] [facility] [employer] [place] [phone] Rosemary Carranza MD [address] [place], [place] [phone] Other malaise Social History Tobacco Use Types Packs/Day Years [...] PM EDT Office Visit Internal Medicine - [facility] [address] [place] [address] Daniel Mcintyre NP [address] [place] [address] documented as of this encounter Procedures Procedure Name Priority Date/Time Associated Diagnosis Comments CBC WITH AUTO DIFFERENTIAL Routine 05/02/2025 5:39 AM EDT Other malaise CBC AND DIFFERENTIAL Routine 05/02/2025 5:39 AM EDT Other malaise BASIC METABOLIC PANEL Routine 05/02/2025 5:39 AM EDT Other malaise documented in this encounter Results * CBC auto differential (05/02/2025 5:39 AM EDT) [facility] WBC 5.6 4.8 - 10.8 K/mcL LAB HEMETOLOGY METHOD 05/02/2025 9:29 AM EDT [facility] RBC 5.30 4.50 - 5.50 M/mcL LAB [facility]OLOG[facility]/02[facility]25 [facility] Hemoglobin 15.5 13.5 - 17.5 g/dL LAB HEMETOLOGY METHOD 05/02/2025 9[facility] Hematocrit 45.5 42.0 - 54.0 % LAB HEMETOLOGY METHOD 05/02/2025 9[facility] MCV 86.5 79.0 - 98.0 FL LAB HEMETOLOGY METHOD 05/02/2025 9[facility] MCH 29.5 27.0 - 32.0 pcg LAB HEMETOLOGY METHOD 05/02/2025 9:[address] [facility] MCHC 34.1 32.0 - 37.0 g/dL LAB HEMETOLOGY METHOD 05/02/2025 9[facility] RDW 13.3 11.0 - 15.0 % LAB HEMETOLOGY METHOD 05/02/2025 9:[address] [facility] Platelets 215 130 - 400 K/mcL LAB HEMETOLOGY METHOD 05/02/2025 9:29 [facility] MPV 11.0 7.0 - 11.0 FL LAB HEMETOLOGY METHOD 05/02/2025 9:[address] [facility] NRBC 0.0 <1.0 % LAB HEMETOLOGY METHOD 05/02/2025 9:[address] [facility] NRBC Absolute 0.00 <0.10 K/mcL LAB HEMETOLOGY METHOD 05/02/2025 9:[address] [facility] Neutrophils Relative 73.1 % LAB HEMETOLOGY METHOD 05/02/2025 9:[address] [facility] Lymphocytes Relative 18.2 % LAB HEMETOLOGY METHOD 05/02/2025 9:[address] [facility] Monocytes Relative 7.4 % LAB HEMETOLOGY METHOD 05/02/2025 9:[address] [facility] Eosinophils Relative 0.4 % LAB HEMETOLOGY METHOD 05/02/2025 9:[address] [facility] Basophils Relative 0.4 % LAB HEMETOLOGY METHOD 05/02/2025 9:[address] [facility] Immature Granulocytes Relative 0.5 % LAB HEMETOLOGY METHOD 05/02/2025 9:[address] [facility] Neutrophils Absolute 4.07 1.50 - 7.00 K/mcL LAB HEMETOLOGY METHOD 05/02/2025 9:[address] [facility] Lymphocytes Absolute 1.01 1.00 - 5.00 K/mcL LAB HEMETOLOGY METHOD 05/02/2025 9:[address] [facility] Monocytes Absolute 0.41 0.20 - 1.00 K/mcL LAB HEMETOLOGY METHOD 05/02/2025 9:[address] [facility] Eosinophils Absolute 0.02 0.00 - 0.50 K/mcL LAB HEMETOLOGY METHOD 05/02/2025 9:[address] [facility] Basophils Absolute 0.02 0.00 - 0.20 K/mcL LAB HEMETOLOGY METHOD 05/02/2025 9:29 AM EDT [facility] Immature Granulocytes Absolute 0.03 0.00 - 0.03 K/mcL LAB HEMETOLOGY METHOD 05/02/2025 9:29 AM T [facility] Blood Venous blood specimen / Unknown Venipuncture / Unknown 05/02/2025 5:39 AM EDT 05/02/2025 8:57 AM EDT us Rosemary Carranza MD LAB BLOOD ORDERABLES Final Resul t [facility] [address] [place] [address], * (ABNORMAL) Basic metabolic panel (05/02/2025 5:39 AM EDT) Sodium 128(L) 133 - 145 mmol/L LAB CHEMISTRY METHOD 05/02/2025 10:[address] [facility] Potassium 4.3 3.5 - 5.5 mmol/L LAB CHEMISTRY METHOD 05/02/2025 10:[address] [facility] Chloride 93(L) 96 - 110 mmol/L LAB CHEMISTRY METHOD 05/02/2025 10:[address] [facility] Comment:Results verified by repeat testing CO2 28 21 - 32 mmol/L LAB CHEMISTRY METHOD 05/02/2025 10:[address] [facility] Anion Gap 7 3 - 11 LAB CHEMISTRY METHOD 05/02/2025 10:[address] [facility] Glucose 104(H) 70 - 100 mg/dL LAB CHEMISTRY METHOD 05/02/2025 10:[address] [facility] BUN 40(H) 5 - 25 mg/dL LAB CHEMISTRY METHOD 05/02/2025 10:[address] [facility] Comment:Results verified by repeat testing Creatinine 1.27 0.70 - 1.30 mg/dL LAB CHEMISTRY METHOD 05/02/2025 10:33 AM EDT [facility] eGFR 56(L) >=60 mL/min/1. 73m2 LAB CHEMISTRY METHOD 05/02/2025 10:33 AM EDT [facility] Comment:Calculation based on the Chronic Kidney Disease Epidemiology Collaboration (CKD-EPI) equation refit without adjustment for race. BUN/Creatinine Ratio 31.5 LAB CHEMISTRY METHOD 05/02/2025 10:33 AM EDT [facility] Calcium 9.4 8.5 - 10.5 mg/dL LAB CHEMISTRY METHOD 05/02/2025 10:33 AM T [facility] Blood Venous blood specimen / Unknown Venipuncture / Unknown 05/02/2025 5:39 AM EDT 05/02/2025 8:57 AM EDT us Rosemary Carranza MD LAB BLOOD ORDERABLES Final Resul t [facility] [address] [place] [address], documented in this encounter Visit Diagnoses Diagnosis Other malaise documented in this encounter Care Teams Pole Maker Relationship Specialty Start Date End Date Mariah Velasquez MD [address] [place] [address] PCP - General Internal Medicine 05/30/25 documented as of this encounter
== END 2025-07-03 09:16 | disposition home or self-care (01) ==
LOC: HO.HSMS 08:07
PROVIDERS: PCP Internal Medicine; Visit Provider Physician Assistant Medical
DX: R29.6 Repeated falls (principal); G25.2 Other specified forms of tremor; G20.A1 Parkinson's disease without dyskinesia, without mention of fluctuations; R91.1 Solitary pulmonary nodule; Z91.89 Other specified personal risk factors, not elsewhere classified; K11.7 Disturbances of salivary secretion
CPT/HCPCS: 99214

== ENCOUNTER → 2025-07-03 08:06 | Outpatient (BNVA) | payer MEDICARE, SELFPAY | PROVIDERS: PCP Internal Medicine; Visit Provider Physician Assistant Medical | DX: G20.A1 Parkinson's disease without dyskinesia, without mention of fluctuations (principal); G25.2 Other specified forms of tremor; R29.6 Repeated falls; K11.7 Disturbances of salivary secretion; R91.1 Solitary pulmonary nodule; Z91.89 Other specified personal risk factors, not elsewhere classified | CPT/HCPCS: 99212 ==

== ENCOUNTER 2025-08-31 14:41 | Outpatient (AMB) | payer MEDICARE, SELFPAY ==
--- NOTE | 2025-08-31 15:24 | MHC.OFFVIS ---
Vital Signs 08/31/25 15:25 Height 5 ft 9 in Weight 163 lb 8 oz BMI 24.1 BP 130/78 Blood Pressure Location Lt brachial Position Sitting Pulse 83 Pulse Source Pulse Oximeter Pulse Oximetry (%) 99 Intake Visit Reasons: 2 mnts f/u-LVM Intake Note: Patient presents follow up Parkinson's. Little better walking with walker(straighter, longer distances). Still needs help with ADLS. Consumer Lending Manager Required: Yes Consumer Lending Manager Services: Consumer Lending Manager Offered & Declined Consumer Lending Manager Name: Daughter Information Interpreted: non-clinical & clinical Accompanied by: Daughter Allergies codeine Allergy (Intermediate, Verified 08/31/25 15:29) Constipation HPI Comments Details: 85 y/o male patient presents for a follow up of Parkinson's Disorder. Reviewed CT / pet scan and chest xray with Daughter and pt. today. The dose of CD/LD is increased to 1.5 tablets of CD/LD now TID 9am, 1pm, and again at 9pm. Patient Ed. provided re: medication adherence, dopamine uptake interference with absorption if taken with proteins. Interval medical history:Walking straighter since PT and gait is steadier, usually with his walker and distance has increased. He can go to the microwave and fix his food to feed himself, though needs help with all his ADLs, food must be cut up for him, needs support with dressing showering and all due to fine motor activities. WATER PUMP OPERATOR is now approved to come in unlimited [employer], [employer] approved. Currently she pays for 2 hours 2 times per week. He has a fall alert bracelet in Russian in case of emergencies. His sleep is stable has a medical bed to help get in and out of bed, and can turn over, he goes to the bathroom once. Nocturia has urinal at bedside. Hearing is poor bilaterally refuses hearing aides, daughter requested VNA / WATER PUMP OPERATOR services to assist for feeding, dressing, safe toileting and transferring. Mood is depressed, denies anxiety. Cognition stable. He denies headaches, dizziness, vertigo, last fall was 3 weeks ago. Tremors cecilia hand tremors L>R, with pulling to the r. side of his upper lip and tremors of the tongue. Diet is stable, BM 2-3x a week, drinks plenty of water. Denies A/V hallucinations, can sleep through the night for a few hours. Social activities, none, watches Baseball on TV. Denies dysphagia, drooling is worse, speech is soft, unable to project his voice, hypophonia, hoarse, and stutters when frustrated. [facility] Medical History Parkinson's disease without dyskinesia Thrombocytopenia Hypothyroidism HTN (hypertension) GERD (gastroesophageal reflux disease) Allergic rhinitis Prostate cancer Hyperlipidemia Vertigo Surgical History Previous back surgery Status post surgical removal of malignant neoplasm of skin Family History Mother Breast cancer Social History Alcohol intake: never Patient Tobacco Use Status: Never used Tobacco Physical Exam Vital Signs: Last Vital Signs Pulse 83 08/31/25 15:25 BP 130/78 08/31/25 15:25 Pulse Ox 99 08/31/25 15:25 BMI result Body Mass Index 24.1 Const General: cooperative, no acute distress and tired appearing Nutritional Appearance: average body habitus Orientation/consciousness: patient oriented x3 Limitations: language barrier (Russian speaking only.) Eyes Other: Decreased eye blink. Resp Effort & Inspection: normal respiratory effort and able to speak in complete sentences Neuro Other: Decreased blink and Bradykinesia. Hypophonia, decreased hearing bilaterally. No posturing hands tremor, but has bilateral hands action tremor L>R. Face and tongue tremor. Slow, decreased FFM. L. extremity rigidity Stooped posture ambulates with rolling walker and leans to the right. General: patient oriented x3 Cranial nerves: Yes Midline tongue present (tremor of face), Yes Ability to bilaterally rotate head present (with limited rom on lateral rotation.) and Yes Ability to bilaterally elevate shoulders present Gait exam (Neuro): Staggering gait present, Assistive device used and Other gait observations present (Stooped, able to stand up without assistance.) Motor exam (neuro): Abnormal motor strength present and Abnormal muscle tone present Deep tendon reflexes (DTR's): Right triceps reflex intensity grade: 1+, Left triceps reflex intensity grade: 1+, Rt Biceps (C5, C6): 1+, Left biceps reflex intensity grade: 1+, Right brachioradialis reflex intensity grade: 1+, Left brachioradialis reflex intensity grade: 1+, Right patellar reflex intensity grade: 1+ and Left patellar reflex intensity grade: 1+ Coordination: [id number] test normal, rapid alternating movements of the distal upper extremity normal (slow) and rapid alternating movements of the distal lower extremity normal (slow l>r) Psych Appearance: well kempt Speech and movement: Slurred speech present and Slowed movement present (Neuro) Affect: Blunted affect present Thought content: Normal thought content present Insight: Fair insight present (Psych) Results Reviewed Results Reviewed: PET CT Chest Xray Assessment & Plan Assessment & Plan (1) Parkinson's Disease: Code(s): G20 - Parkinson's disease Category: Medical (2) Falls frequently: Comment: using rolling walker now Code(s): R29.6 - Repeated falls Category: Medical (3) Coarse tremors: Code(s): G25.2 - Other specified forms of tremor Category: Medical (4) Parkinson's disease without dyskinesia: Code(s): G20.A1 - Parkinson's disease without dyskinesia, without mention of fluctuations Category: Medical (5) Pulmonary nodule less than 1 cm in diameter with low risk for malignant neoplasm: Comment: infectous etiology Code(s): R91.1 - Solitary pulmonary nodule; Z91.89 - Other specified personal risk factors, not elsewhere classified Category: Medical (6) Drooling: Comment: speech Code(s): K11.7 - Disturbances of salivary secretion Category: Medical (7) Excessive daytime sleepiness: Code(s): G47.19 - Other hypersomnia Category: Medical Plan Parkinsons Disease continue sinemet 1.5 tablet 25/100 tid 9am, 1pm, and 9pm, Increase fluids and food intake without protein products when taking the Sinemet, pt. education provided. Monitor off time and take notes. for Onpago / Apomorphine re: Justyn Willis, Apomorphine pump therapy with Onpago today as he may be a good candidate. Continue working with PT/OT weekly for gait strengthening exercise, he has improved. Speech for drooling/ hypophonia. Hearing Bilateral hearing aides? Sleep study if amenable? VNA/WATER PUMP OPERATOR services requested for support with transferring, toileting, showering and feeding. f/u in 3 months or sooner if needed with Dr. Sin. Orders: Orders Complete Blood Count no Diff Today G47.19 - Other hypersomnia Ferritin Today G47.19 - Other hypersomnia Vitamin D 25-OH Total Today G47.19 - Other hypersomnia Vitamin B12 and Folate Today G47.19 - Other hypersomnia TSH reflex Free T4 Today G47.19 - Other hypersomnia PT Evaluation and Treatment Today G20 - Parkinson's disease, R29.6 - Repeated falls Comprehensive Met. Panel Today G47.19 - Other hypersomnia Methylmalonic Acid Today G47.19 - Other hypersomnia, G47.9 - Sleep disorder, unspecified, R53.83 - Other fatigue IRON PROFILE Today G47.19 - Other hypersomnia, G47.9 - Sleep disorder, unspecified, R53.83 - Other fatigue Homocysteine Today G47.19 - Other hypersomnia, G47.9 - Sleep disorder, unspecified, R53.83 - Other fatigue Medications: Changed From carbidopa-levodopa 25-100 mg (Sinemet) 5am,10am,4pm,9pm 1.5 tabs PO TID G20 - Parkinson's disease, G20.A1 - Parkinson's disease without dyskinesia, without mention of fluctuations, G25.2 - Other specified forms of tremor To carbidopa-levodopa 25-100 mg (Sinemet) 5am,10am,4pm,9pm 1.5 tabs PO TID 405 tabs 0RF Parkinsons 3 months MDD 4.5 tablets G20 - Parkinson's disease, G20.A1 - Parkinson's disease without dyskinesia, without mention of fluctuations, G25.2 - Other specified forms of tremor Patient Instructions: Please complete the following fasting labs to rule out deficiencies. CBC/CMP/ B12/ Vit D/ TSH/ Homocysteine and MMA/ Ferritin. Bilateral hands / redness, swelling, f/u with pcp. Sleep Hygiene provided: set a scheduled bedtime and wake time to help regulate the circadian rhythm and balance the release of pituitary hormones. Sleep in a dark room, temperatures below 68 degrees, and no devices n bed. Limit caffeinated products 6 hours prior to bed, and limit fluids 2-4 hours prior to bed. Gentle night yoga, diffusing essential oils, and playing soft music can be relaxing. Monitor these parameters and note/ off time for onpago therapy or crexont, or rytary, changes to ext. release meds. ADL's: Voice: Swallowing: Cough: Drooling: Orthostatic lightheadedness: Constipation: None : urinary/ BM incontinence or frequency: Freezing: Stairs: Stiffness: Tremor: Falls: None. Uses cane/walker/ ? Hallucinations: auditory or visual Memory: Sleep: Exercise: Coding Level of Care Code Est Pt Level 4 (99235) Diagnoses Parkinson's Disease G20 Falls frequently R29.6 Coarse tremors G25.2 Parkinson's disease without dyskinesia G20.A1 Pulmonary nodule less than 1 cm in diameter with low risk for malignant neoplasm R91.1; Z91.89 Drooling K11.7 Excessive daytime sleepiness G47.19
[2025-08-31 15:25] VITALS: BP 130/78; PULSE 83; O2SAT 99; BMI 24.1
== END 2025-08-31 16:24 | disposition home or self-care (01) ==
LOC: HO.HSMS 14:41
PROVIDERS: PCP Internal Medicine; Visit Provider Physician Assistant Medical
DX: G20.A1 Parkinson's disease without dyskinesia, without mention of fluctuations (principal); R29.6 Repeated falls; R91.1 Solitary pulmonary nodule; Z91.89 Other specified personal risk factors, not elsewhere classified; K11.7 Disturbances of salivary secretion; G47.19 Other hypersomnia
CPT/HCPCS: 99214

== ENCOUNTER → 2025-08-31 14:41 | Outpatient (BNVA) | payer MEDICARE, SELFPAY | PROVIDERS: PCP Internal Medicine; Visit Provider Physician Assistant Medical | DX: G20.A1 Parkinson's disease without dyskinesia, without mention of fluctuations (principal); R91.1 Solitary pulmonary nodule; G47.19 Other hypersomnia; K11.7 Disturbances of salivary secretion; R29.6 Repeated falls; G25.2 Other specified forms of tremor | CPT/HCPCS: 99212 ==